=== PATIENT | female | born 1940 | race Two or more races ===

== ENCOUNTER 2017-10-31 15:40 | Inpatient (IN) | payer MEDICARE, OTHER ==
[~2017-10-31] VITALS: Ht 160 cm; Wt 99.8 kg
[2017-10-31] MEDS ORDERED: METOPROLOL TART25 MG ORAL (15:58)
[2017-10-31 16:00] VITALS: BP 127/69
--- NOTE | 2017-10-31 16:45 | Emergency Room Report ---
History of Present Illness General Chief Complaint: Upper Respiratory Illness Source: Patient, EMS Present Illness HPI 77-year-old female presents to ED complaining of shortness of breath last few days. No decreased leg swelling. Denies fevers or chills. Denies cough. Denies chest pain. Denies sick contacts or recent travel. [employer] is Dr Jey Joyce. No other aggravating or relieving factors. Denies any other associated symptoms Allergies: Coded Allergies: No Known Allergies (Unverified , 10/31/17) Patient History Past Medical History: HTN, AFib Past Surgical History: none Pertinent Family History: none Social History: Denies: smoking, alcohol use, drug use Now: No Immunizations: UTD Reviewed Nursing Documentation: PMH: Agreed, PSxH: Agreed Nursing Documentation-PMH Past Medical History: No History, Except For Hx Cardiac Problems: Yes Hx Hypertension: Yes Review of Systems All Other Systems: negative except mentioned in HPI Physical Exam Vital Signs Date Time Temp Pulse Resp B/P (MAP) Pulse Ox O2 Delivery O2 Flow Rate FiO2 10/31/17 15:36 120 20 132/94 99 Nasal Cannula 4.0 Sp02 EP Interpretation: reviewed, normal General Appearance: alert, mild distress, obese Head: normocephalic ENT: normal ENT inspection Neck: normal inspection Respiratory: decreased breath sounds Cardiovascular #1: regular rate, rhythm, no edema Gastrointestinal: normal bowel sounds, non tender, soft, non-distended, no guarding, no rebound Rectal: deferred Genitourinary: no CVA tenderness Musculoskeletal: back normal, swelling - 2+ pitting edema bilateral LEs Neurologic: alert, oriented x3, responsive, motor strength/tone normal, sensory intact, speech normal Psychiatric: normal inspection Skin: normal inspection Lymphatic: normal inspection Medical Decision Making Diagnostic Impression: Primary Impression: Acute exacerbation of CHF (congestive heart failure) Qualified Codes: I50.9 - Heart failure, unspecified ER Course Hospital Course 77-year-old female presents ED complaining of shortness of breath, leg swelling Differential diagnoses include: DC/unstable angina, contusion, muscle strain, PTX, rib fracture Clinical course Patient placed on stretcher. on quality assurance monitor final. After initial history and physical I ordered labs, EKG, chest x-ray labs reviewed- no leukocytosis, hemoglobin/hematocrit stable, creatinine elevated, troponins negative, BNP elevated. influenza negative EKG -afib, normal rate, no acute ischemic changes Chest x-ray- cardiomegaly, CHF ?PNA Antibiotics given. Lasix given. Spoke to PMD Dr Jey Joyce. asked that we admit to Dr Amado Case discussed with Dr. Amado and he agreed to accept the patient to his service for further care and support I. I feel this is a highly complex case requiring extensive working including EKG/Rhythm strip, Xray/CT/US, Blood/urine lab work, repeat exams while in ED, and administration of strong opiates/narcotics for pain control, admission to hospital or close patient follow up. Diagnosis - CHF exacerbation admitted to telemetry in serious condition Labs Test 10/31/17 16:30 10/31/17 18:23 White Blood Count 7.6 K/UL (4.8-10.8) Red Blood Count 4.57 M/UL (4.20-5.40) Hemoglobin 13.0 G/DL (12.0-16.0) Hematocrit 42.9 % (37.0-47.0) Mean Corpuscular Volume 94 FL (80-99) Mean Corpuscular Hemoglobin 28.4 PG (27.0-31.0) Mean Corpuscular Hemoglobin Concent 30.2 G/DL (32.0-36.0) Red Cell Distribution Width 12.7 % (11.6-14.8) Platelet Count 166 K/UL (150-450) Mean Platelet Volume 8.2 FL (6.5-10.1) Neutrophils (%) (Auto) 82.5 % (45.0-75.0) Lymphocytes (%) (Auto) 12.4 % (20.0-45.0) Monocytes (%) (Auto) 4.0 % (1.0-10.0) Eosinophils (%) (Auto) 0.6 % (0.0-3.0) Basophils (%) (Auto) 0.5 % (0.0-2.0) Sodium Level 143 MMOL/L (136-145) Potassium Level 4.0 MMOL/L (3.5-5.1) Chloride Level 103 MMOL/L (98-107) Carbon Dioxide Level 35 MMOL/L (21-32) Anion Gap 5 mmol/L (5-15) Blood Urea Nitrogen 18 mg/dL (7-18) Creatinine 0.9 MG/DL (0.55-1.30) Estimat Glomerular Filtration Rate mL/min (>60) Glucose Level 158 MG/DL (74-106) Lactic Acid Level 1.50 mmol/L (0.66-2.22) Calcium Level 8.8 MG/DL (8.5-10.1) Total Bilirubin 0.6 MG/DL (0.2-1.0) Aspartate Amino Transf (AST/SGOT) 27 U/L (15-37) Alanine Aminotransferase (ALT/SGPT) 27 U/L (12-78) Alkaline Phosphatase 76 U/L (46-116) Total Creatine Kinase 45 U/L (26-308) Creatine Kinase MB 1.5 NG/ML (0.0-3.6) Creatine Kinase MB Relative Index 3.3 Troponin I 0.002 ng/mL (0.000-0.056) Pro-B-Type Natriuretic Peptide 1889 pg/mL (0-125) Total Protein 7.0 G/DL (6.4-8.2) Albumin 3.2 G/DL (3.4-5.0) Globulin 3.8 g/dL Albumin/Globulin Ratio 0.8 (1.0-2.7) Urine Color Pale yellow Urine Appearance Clear Urine pH 5 (4.5-8.0) Urine Specific [place] 1.015 (1.005-1.035) Urine Protein 2+ (NEGATIVE) Urine Glucose (UA) Negative (NEGATIVE) Urine Ketones Negative (NEGATIVE) Urine Occult Blood 2+ (NEGATIVE) Urine Nitrite Negative (NEGATIVE) Urine Bilirubin Negative (NEGATIVE) Urine Urobilinogen Normal MG/DL (0.0-1.0) Urine Leukocyte Esterase Negative (NEGATIVE) EKG Diagnostic Results Rate: normal Rhythm: other - afib ST Segments: no acute changes Rhythm Strip Diag. Results EP Interpretation: yes Rhythm: no PVC's, no ectopy Chest X-Ray Diagnostic Results Chest X-Ray Diagnostic Results : Chest X-Ray Ordered: Yes # of Views/Limited/Complete: 1 View Indication: Shortness of Breath EP Interpretation: Yes Interpretation: no pneumothorax, other - cardiomegaly. CHF ?PNA Impression: Other - chf vs pna Electronically Signed by: Electronically signed by Per Akins MD Last Vital Signs Date Time Temp Pulse Resp B/P (MAP) Pulse Ox O2 Delivery O2 Flow Rate FiO2 10/31/17 15:36 120 20 132/94 99 Nasal Cannula 4.0 Status: improved Disposition: ADMITTED INPATIENT Condition: Serious Referrals: NON PHYSICIAN (PCP) PER AKINS M.D. Oct 31, 2017 16:45
--- NOTE | 2017-10-31 16:46 | Diagnostic Imaging Report ---
Indication: Dyspnea Technique: XRAY Chest 1v Comparison: None Findings: Heart is enlarged. There is mild pulmonary vascular congestion. There is a small right pleural effusion and right basilar airspace opacities. No pneumothorax. No acute osseous abnormality. Impression: Small right pleural effusion with adjacent right basilar opacities. Findings concerning for pneumonia. Component of underlying CHF possible given cardiomegaly. Clinical correlation and follow-up exam recommended.
[2017-10-31 16:57] LABS: BASOPHILS % (AUTO) 0.5 % (0.0-2.0); EOSINOPHILS % (AUTO) 0.6 % (0.0-3.0); HEMATOCRIT 42.9 % (37.0-47.0); LYMPHOCYTES % (AUTO) 12.4 % (20.0-45.0); MEAN CORPUSCULAR VOLUME 94 FL (80-99); NEUTROPHILS % (AUTO) 82.5 % (45.0-75.0); PLATELET COUNT 166 K/UL (150-450); RED BLOOD COUNT 4.57 M/UL (4.20-5.40); RED CELL DISTRIBUTION WIDTH 12.7 % (11.6-14.8); WHITE BLOOD COUNT 7.6 K/UL (4.8-10.8)
[2017-10-31 17:01] LABS: ANION GAP 5 mmol/L (5-15); BLOOD UREA NITROGEN 18 mg/dL (7-18); CALCIUM 8.8 MG/DL (8.5-10.1); CARBON DIOXIDE 35 MMOL/L (21-32); CHLORIDE 103 MMOL/L (98-107); CREATININE 0.9 MG/DL (0.55-1.30); SODIUM 143 MMOL/L (136-145)
[2017-10-31 17:14] LABS: ALANINE AMINOTRANSFERASE 27 U/L (12-78); ALBUMIN 3.2 G/DL (3.4-5.0); ALBUMIN/GLOBULIN RATIO 0.8 (1.0-2.7); ALKALINE PHOSPHATASE 76 U/L (46-116); ASPARTATE AMINO TRANSFERASE 27 U/L (15-37); BILIRUBIN,TOTAL 0.6 MG/DL (0.2-1.0); CKMB 1.5 NG/ML (0.0-3.6); CREATINE KINASE 45 U/L (26-308)
[2017-10-31] MEDS ORDERED: BYSTOLIC 10MG10 MG (17:39)
[2017-10-31] MEDS ORDERED: XARELTO20 MG ORAL (17:39)
[2017-10-31] MEDS ORDERED: OLOPATADINE HC2.5 ML (17:39)
[2017-10-31] MEDS ORDERED: Tubing IV Cassette IV ONE (17:46)
[2017-10-31] MEDS ORDERED: XARELTO15 MG ORAL (17:47)
[2017-10-31] MEDS ORDERED: METOPROLOL SUCC25 MG ORAL (17:47)
[2017-10-31 18:00] VITALS: BP 123/71
[2017-10-31 18:38] LABS: APPEARANCE,URINE CLEAR; BILIRUBIN, URINE NEGATIVE (NEGATIVE); COLOR,URINE PALE YELLOW; GLUCOSE, URINE (UA) NEGATIVE (NEGATIVE); KETONES,URINE NEGATIVE (NEGATIVE); LEUKOCYTE ESTERASE ,URINE NEGATIVE (NEGATIVE); NITRITE,URINE NEGATIVE (NEGATIVE); PH,URINE 5 (4.5-8.0); PROTEIN,URINE 2+ (NEGATIVE); UROBILINOGEN,URINE NORMAL MG/DL (0.0-1.0)
[2017-10-31] MEDS ORDERED: Zolpidem 5mg tab ORAL PRN (20:45)
[2017-10-31 20:47] VITALS: BP 139/65
[2017-10-31] MEDS ORDERED: Heparin 5000 units/ml inj SUBQ SCH (21:00)
--- NOTE | 2017-10-31 21:20 | History & Physical ---
History and Physical History & Physicial 77 year old female presents with acute shortness of breath with no significant congestion. Patient does have history of CHF and noted to have possible pneumonia and pulmonary edema. Patient without fevers, chills, chest pain, or palpitations. Patient care reviewed and usually is admited to an outside hospital. Patient findings discussed and reviewed with the ER MD. no other associated symptoms. Past Medical History: HTN, AFib, CHF Past Surgical History: none Pertinent Family History: none Social History: Denies: smoking, alcohol use, drug use, retired, [employer] Reviewed of systems: reviewed Physical WDWN NAD reduced breath sounds bilaterally with some basilar crackles [id number] without MRG NABS nontender no HSM no CC some edema nonfocal Laboratory Tests Test 10/31/17 16:30 10/31/17 18:23 White Blood Count 7.6 K/UL (4.8-10.8) Red Blood Count 4.57 M/UL (4.20-5.40) Hemoglobin 13.0 G/DL (12.0-16.0) Hematocrit 42.9 % (37.0-47.0) Mean Corpuscular Volume 94 FL (80-99) Mean Corpuscular Hemoglobin 28.4 PG (27.0-31.0) Mean Corpuscular Hemoglobin Concent 30.2 G/DL (32.0-36.0) L Red Cell Distribution Width 12.7 % (11.6-14.8) Platelet Count 166 K/UL (150-450) Mean Platelet Volume 8.2 FL (6.5-10.1) Neutrophils (%) (Auto) 82.5 % (45.0-75.0) H Lymphocytes (%) (Auto) 12.4 % (20.0-45.0) L Monocytes (%) (Auto) 4.0 % (1.0-10.0) Eosinophils (%) (Auto) 0.6 % (0.0-3.0) Basophils (%) (Auto) 0.5 % (0.0-2.0) Sodium Level 143 MMOL/L (136-145) Potassium Level 4.0 MMOL/L (3.5-5.1) Chloride Level 103 MMOL/L (98-107) Carbon Dioxide Level 35 MMOL/L (21-32) H Anion Gap 5 mmol/L (5-15) Blood Urea Nitrogen 18 mg/dL (7-18) Creatinine 0.9 MG/DL (0.55-1.30) Estimat Glomerular Filtration Rate mL/min (>60) Glucose Level 158 MG/DL (74-106) H Lactic Acid Level 1.50 mmol/L (0.66-2.22) Calcium Level 8.8 MG/DL (8.5-10.1) Total Bilirubin 0.6 MG/DL (0.2-1.0) Aspartate Amino Transf (AST/SGOT) 27 U/L (15-37) Alanine Aminotransferase (ALT/SGPT) 27 U/L (12-78) Alkaline Phosphatase 76 U/L (46-116) Total Creatine Kinase 45 U/L (26-308) Creatine Kinase MB 1.5 NG/ML (0.0-3.6) Creatine Kinase MB Relative Index 3.3 Troponin I 0.002 ng/mL (0.000-0.056) Pro-B-Type Natriuretic Peptide 1889 pg/mL (0-125) H Total Protein 7.0 G/DL (6.4-8.2) Albumin 3.2 G/DL (3.4-5.0) L Globulin 3.8 g/dL Albumin/Globulin Ratio 0.8 (1.0-2.7) L Urine Color Pale yellow Urine Appearance Clear Urine pH 5 (4.5-8.0) Urine Specific [place] 1.015 (1.005-1.035) Urine Protein 2+ (NEGATIVE) H Urine Glucose (UA) Negative (NEGATIVE) Urine Ketones Negative (NEGATIVE) Urine Occult Blood 2+ (NEGATIVE) H Urine Nitrite Negative (NEGATIVE) Urine Bilirubin Negative (NEGATIVE) Urine Urobilinogen Normal MG/DL (0.0-1.0) Urine Leukocyte Esterase Negative (NEGATIVE) Urine RBC 2-4 /HPF (0 - 2) H Urine WBC 0-2 /HPF (0 - 2) Urine Squamous Epithelial Cells Few /LPF (NONE/OCC) Urine Transitional Epithelial Cells /LPF (NONE) Urine Bacteria Few /HPF (NONE) IMPRESSION CHF possible Pneumonia PAF respiratory insufficiency PLAN diurese antibiotics oxygen lasix home meds follow up labs and ECG impression, plan, and exam edited and reviewed in detail care discussed with GLEN RAINEY Oct 31, 2017 21:19
[2017-10-31] MEDS: cefTRIAXone 1gm/D5W 55ml IVPB SCH ×2 (23:30)
[2017-11-01 00:23] VITALS: BP 142/89
[2017-11-01 04:29] VITALS: BP 132/91
--- NOTE | 2017-11-01 07:00 | Pulmonology Progress Note ---
Assessment/Plan Assessment/Plan IMPRESSION CHF possible Pneumonia PAF respiratory insufficiency atrial fibrillation, with RVR PLAN diurese antibiotics oxygen rate control monitor for change cards evaluation lasix home meds follow up labs and ECG impression, plan, and exam edited and reviewed in detail care discussed with RN Subjective Allergies: Coded Allergies: No Known Allergies (Unverified , 10/31/17) Subjective care noted oxygen needs noted no distress Objective Last 24 Hour Vital Signs Date Time Temp Pulse Resp B/P (MAP) Pulse Ox O2 Delivery O2 Flow Rate FiO2 11/01/17 04:29 96.8 94 19 132/91 97 Nasal Cannula 2.0 11/01/17 04:00 98 11/01/17 00:23 97.2 115 19 142/89 97 Nasal Cannula 11/01/17 00:00 119 10/31/17 20:47 97.7 103 20 139/65 96 Nasal Cannula 10/31/17 20:00 96 10/31/17 19:13 97.7 107 20 123/71 95 Nasal Cannula 2.0 10/31/17 18:00 97.7 107 20 123/71 95 Nasal Cannula 2.0 10/31/17 16:00 102 16 127/69 98 Nasal Cannula 2.0 10/31/17 15:45 120 20 Nasal Cannula 4.0 10/31/17 15:36 120 20 132/94 99 Nasal Cannula 4.0 Intake and Output 10/31/17 11/01/17 19:00 07:00 Output Total 550 ml 600 ml Balance -550 ml -600 ml Output Urine Total 550 ml 600 ml Objective WDWN NAD reduced breath sounds bilaterally with some crackles and rhonchi S1S2 iRRR without MRG NABS nontender no HSM no CC noted edema nonfocal Microbiology Date/Time Source Procedure Growth Status 10/31/17 16:30 Nasal Nares Influenza Types A,B Antigen (MILAD) - Final Complete Laboratory Tests 10/31/17 16:30: White Blood Count 7.6, Red Blood Count 4.57, Hemoglobin 13.0, Hematocrit 42.9, Mean Corpuscular Volume 94, Mean Corpuscular Hemoglobin 28.4, Mean Corpuscular Hemoglobin Concent 30.2L, Red Cell Distribution Width 12.7, Platelet Count 166, Mean Platelet Volume 8.2, Neutrophils (%) (Auto) 82.5H, Lymphocytes (%) (Auto) 12.4L, Monocytes (%) (Auto) 4.0, Eosinophils (%) (Auto) 0.6, Basophils (%) (Auto ) 0.5, Sodium Level 143, Potassium Level 4.0, Chloride Level 103, Carbon Dioxide Level 35H, Anion Gap 5, Blood Urea Nitrogen 18, Creatinine 0.9, Estimat Glomerular Filtration Rate , Glucose Level 158H, Lactic Acid Level 1.50, Calcium Level 8.8, Total Bilirubin 0.6, Aspartate Amino Transf (AST/SGOT) 27, Alanine Aminotransferase (ALT/SGPT) 27, Alkaline Phosphatase 76, Total Creatine Kinase 45, Creatine Kinase MB 1.5, Creatine Kinase MB Relative Index 3.3, Troponin I 0.002, Pro-B-Type Natriuretic Peptide 1889H, Total Protein 7.0, Albumin 3.2L, Globulin 3.8, Albumin/Globulin Ratio 0.8L 10/31/17 18:23: Urine Color Pale yellow, Urine Appearance Clear, Urine pH 5, Urine Specific [place] 1.015, Urine Protein 2+H, Urine Glucose (UA) Negative, Urine Ketones Negative, Urine Occult Blood 2+H, Urine Nitrite Negative, Urine Bilirubin Negative, Urine Urobilinogen Normal, Urine Leukocyte Esterase Negative, Urine RBC 2-4H, Urine WBC 0-2, Urine Squamous Epithelial Cells Few, Urine Transitional Epithelial Cells , Urine Bacteria Few Current Medications Medications (Trade) Dose Ordered Sig/Butch Route PRN Reason Start Time Stop Time Status Last Admin Dose Admin Acetaminophen (Tylenol) 650 mg Q4H PRN ORAL Mild Pain/Temp > 100.5 10/31/17 20:45 11/30/17 20:44 Al Hydroxide/Mg Hydroxide (Mylanta) 30 ml Q4HR PRN ORAL acid reduction 10/31/17 20:45 11/30/17 20:44 Aspirin (ASA) 81 mg DAILY ORAL 11/01/17 09:00 12/01/17 08:59 Ceftriaxone Sodium 1 gm/ Dextrose 55 ml @ 110 mls/hr Q24H IVPB 10/31/17 23:30 11/07/17 23:29 10/31/17 23:30 Furosemide (Lasix) 40 mg DAILY IV 11/01/17 09:00 12/01/17 08:59 Metoprolol Succinate (Toprol XL) 25 mg BID ORAL 11/01/17 09:00 12/01/17 08:59 UNV Nebivolol (Bystolic) 10 mg DAILY ORAL 11/01/17 09:00 12/01/17 08:59 UNV Non-Formulary Medication (Non-Formulary Med) 2.5 ea BID ORAL 11/01/17 09:00 12/01/17 08:59 UNV Pantoprazole (Protonix) 40 mg DAILY ORAL 11/01/17 09:00 12/01/17 08:59 Rivaroxaban (Xarelto) 15 mg QPM ORAL 11/01/17 16:30 12/01/17 16:29 Zolpidem Tartrate (Ambien) 10 mg HSPRN PRN ORAL Insomnia 10/31/17 20:45 11/07/17 20:44 GLEN DELGADO Nov 01, 2017 07:00
[2017-11-01 08:04] VITALS: BP 127/87
[2017-11-01] MEDS ORDERED: Aspirin Baby 81mg ORAL SCH (09:00)
[2017-11-01] MEDS ORDERED: Metoprolol Succinate XL 25mg tab ORAL SCH ×2 (09:00→21:00)
[2017-11-01 09:59] LABS: BASOPHILS % (AUTO) 0.4 % (0.0-2.0); EOSINOPHILS % (AUTO) 0.6 % (0.0-3.0); HEMATOCRIT 42.4 % (37.0-47.0); HEMOGLOBIN 13.1 G/DL (12.0-16.0); LYMPHOCYTES % (AUTO) 18.3 % (20.0-45.0); MEAN CORPUSCULAR VOLUME 93 FL (80-99); NEUTROPHILS % (AUTO) 74.7 % (45.0-75.0); PLATELET COUNT 176 K/UL (150-450); RED BLOOD COUNT 4.56 M/UL (4.20-5.40); RED CELL DISTRIBUTION WIDTH 12.7 % (11.6-14.8); WHITE BLOOD COUNT 7.5 K/UL (4.8-10.8)
[2017-11-01 10:24] LABS: ANION GAP 5 mmol/L (5-15); BLOOD UREA NITROGEN 13 mg/dL (7-18); CALCIUM 9.2 MG/DL (8.5-10.1); CARBON DIOXIDE 38 MMOL/L (21-32); CHLORIDE 101 MMOL/L (98-107); POTASSIUM 3.6 MMOL/L (3.5-5.1); SODIUM 144 MMOL/L (136-145)
[2017-11-01] MEDS ORDERED: dilTIAZem HCl 25mg/5ml Inj IVP ONE (11:35)
[2017-11-01 11:55] VITALS: BP 135/73
--- NOTE | 2017-11-01 12:30 | General Progress Note ---
Assessment/Plan Problem List: (1) PNA (pneumonia) ICD Codes: J18.9 - Pneumonia, unspecified organism SNOMED: 525119146 (2) Atrial fibrillation with RVR ICD Codes: I48.91 - Unspecified atrial fibrillation SNOMED: 958657153775605 (3) Acute exacerbation of CHF (congestive heart failure) ICD Codes: I50.9 - Heart failure, unspecified SNOMED: 73251127 Qualifiers: Qualified Codes: I50.9 - Heart failure, unspecified Status: stable, progressing Assessment/Plan resp care o2 cardiac rx/diuresis abx check tfts Subjective ROS Limited/Unobtainable: No Constitutional: Reports: malaise, weakness HEENT: Reports: no symptoms Cardiovascular: Reports: no symptoms Respiratory: Reports: cough, shortness of breath Gastrointestinal/Abdominal: Reports: no symptoms Genitourinary: Reports: no symptoms Neurologic/Psychiatric: Reports: no symptoms Endocrine: Reports: no symptoms Hematologic/Lymphatic: Reports: no symptoms Allergies: Coded Allergies: No Known Allergies (Unverified , 10/31/17) All Systems: reviewed and negative except above Subjective no events. less sob. had rapid afib earlier today. now better controlled. no cp Objective Last 24 Hour Vital Signs Date Time Temp Pulse Resp B/P (MAP) Pulse Ox O2 Delivery O2 Flow Rate FiO2 11/01/17 11:55 97.2 103 18 135/73 98 Nasal Cannula 2.0 11/01/17 11:32 129 141/96 11/01/17 08:04 96.6 103 18 127/87 92 Nasal Cannula 2.0 11/01/17 08:00 99 11/01/17 04:29 96.8 94 19 132/91 97 Nasal Cannula 2.0 11/01/17 04:00 98 11/01/17 00:23 97.2 115 19 142/89 97 Nasal Cannula 11/01/17 00:00 119 10/31/17 20:47 97.7 103 20 139/65 96 Nasal Cannula 10/31/17 20:00 96 10/31/17 19:13 97.7 107 20 123/71 95 Nasal Cannula 2.0 10/31/17 18:00 97.7 107 20 123/71 95 Nasal Cannula 2.0 10/31/17 16:00 102 16 127/69 98 Nasal Cannula 2.0 10/31/17 15:45 120 20 Nasal Cannula 4.0 10/31/17 15:36 120 20 132/94 99 Nasal Cannula 4.0 Intake and Output 10/31/17 11/01/17 19:00 07:00 Output Total 550 ml 600 ml Balance -550 ml -600 ml Output Urine Total 550 ml 600 ml Laboratory Tests 10/31/17 16:30: White Blood Count 7.6, Red Blood Count 4.57, Hemoglobin 13.0, Hematocrit 42.9, Mean Corpuscular Volume 94, Mean Corpuscular Hemoglobin 28.4, Mean Corpuscular Hemoglobin Concent 30.2L, Red Cell Distribution Width 12.7, Platelet Count 166, Mean Platelet Volume 8.2, Neutrophils (%) (Auto) 82.5H, Lymphocytes (%) (Auto) 12.4L, Monocytes (%) (Auto) 4.0, Eosinophils (%) (Auto) 0.6, Basophils (%) (Auto ) 0.5, Sodium Level 143, Potassium Level 4.0, Chloride Level 103, Carbon Dioxide Level 35H, Anion Gap 5, Blood Urea Nitrogen 18, Creatinine 0.9, Estimat Glomerular Filtration Rate , Glucose Level 158H, Lactic Acid Level 1.50, Calcium Level 8.8, Total Bilirubin 0.6, Aspartate Amino Transf (AST/SGOT) 27, Alanine Aminotransferase (ALT/SGPT) 27, Alkaline Phosphatase 76, Total Creatine Kinase 45, Creatine Kinase MB 1.5, Creatine Kinase MB Relative Index 3.3, Troponin I 0.002, Pro-B-Type Natriuretic Peptide 1889H, Total Protein 7.0, Albumin 3.2L, Globulin 3.8, Albumin/Globulin Ratio 0.8L 10/31/17 18:23: Urine Color Pale yellow, Urine Appearance Clear, Urine pH 5, Urine Specific [place] 1.015, Urine Protein 2+H, Urine Glucose (UA) Negative, Urine Ketones Negative, Urine Occult Blood 2+H, Urine Nitrite Negative, Urine Bilirubin Negative, Urine Urobilinogen Normal, Urine Leukocyte Esterase Negative, Urine RBC 2-4H, Urine WBC 0-2, Urine Squamous Epithelial Cells Few, Urine Transitional Epithelial Cells , Urine Bacteria Few 11/01/17 09:30: White Blood Count 7.5, Red Blood Count 4.56, Hemoglobin 13.1, Hematocrit 42.4, Mean Corpuscular Volume 93, Mean Corpuscular Hemoglobin 28.8, Mean Corpuscular Hemoglobin Concent 31.0L, Red Cell Distribution Width 12.7, Platelet Count 176, Mean Platelet Volume 9.3, Neutrophils (%) (Auto) 74.7, Lymphocytes (%) (Auto) 18.3L, Monocytes (%) (Auto) 6.0, Eosinophils (%) (Auto) 0.6, Basophils (%) (Auto ) 0.4, Sodium Level 144, Potassium Level 3.6, Chloride Level 101, Carbon Dioxide Level 38H, Anion Gap 5, Blood Urea Nitrogen 13, Creatinine 1.0, Estimat Glomerular Filtration Rate , Glucose Level 191H, Calcium Level 9.2, Pro-B-Type Natriuretic Peptide 1936H Height (Feet): 5 Height (Inches): 3.00 Weight (Pounds): 176 General Appearance: WD/WN, alert EENT: PERRL/EOMI Neck: supple Cardiovascular: irregularly irregular Respiratory/Chest: chest wall non-tender, rhonchi - bilaterally Abdomen: normal bowel sounds, non tender, soft, no organomegaly Extremities: normal range of motion Edema: mild edema 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
--- NOTE | 2017-11-01 12:33 | Diagnostic Imaging Report ---
Indication: Dyspnea Comparison: 10/31/2017 2 views of the chest obtained. The studies are technically dissimilar. The interstitium and pulmonary vascularity remain prominent. There is evidence of mild right basal atelectasis and possibly a small effusion. Heart size is within normal limits accounting for difference in projection angle and technique. Bones are osteopenic. Moderate degenerative disease of the thoracic spine noted. IMPRESSION: Prominent pulmonary vascularity. Mild degree of interstitial edema may be present. Please correlate clinically.
[2017-11-01 15:31] VITALS: BP 133/80
[2017-11-01] MEDS: Xarelto 15mg tab ORAL SCH (16:07)
--- NOTE | 2017-11-01 17:42 | Cardiology Report ---
APPROVED REPORT EXAM: Two-dimensional and M-mode echocardiogram with Doppler and color Doppler. INDICATION Congestive Heart Failure M-Mode DIMENSIONS IVSd0.6 (0.7-1.1cm)Left Atrium (MM)5.0 (1.6-4.0cm) LVDd4.2 (3.5-5.6cm)Aortic Root3.0 (2.0-3.7cm) PWd0.9 (0.7-1.1cm)Aortic Cusp Exc.1.5 (1.5-2.0cm) LVDs2.6 (2.5-4.0cm) PWs0.9 cm Normal left ventricular chamber size, systolic function and wall motion. Left ventricular ejection fraction estimated to be 60-65%. No evidence of left ventricular hypertrophy. Small posterior pericardial effusion. Mild bi-atrial enlargement by 2D. Focal aortic valve sclerosis with adequate cusp excursion. Thickened mitral valve leaflets with normal excursion. Mild mitral annulus and aortic root calcification. Pulmonic valve not well visualized. Normal tricuspid valve structure. IVC is normal in size and collapsible with respiration. A color flow and spectral Doppler study was performed and revealed: No aortic regurgitation. Trace mitral regurgitation. Mitral inflow velocities non diagnostic Mild tricuspid regurgitation. Tricuspid systolic velocities suggests peak right ventricular systolic pressure of 53 mmHg. Consistent with moderate pulmonary hypertension.
--- NOTE | 2017-11-01 17:46 | Cardiology Report ---
APPROVED REPORT EKG Measurement Heart [id number] Atrial fibrillation with rapid ventricular response Low voltage QRS Cannot rule out Anteroseptal infarct, age undetermined Abnormal ECG
[2017-11-01] MEDS ORDERED: Metoprolol 5mg/5ml Inj IVPB ONE (18:30)
[2017-11-01 20:28] VITALS: BP 126/95
[2017-11-01] MEDS: Metoprolol Tartrate 50mg tab ORAL SCH (20:41)
[2017-11-01] MEDS: cefTRIAXone 1gm/D5W 55ml IVPB SCH ×2 (23:35)
--- NOTE | 2017-11-02 | Consultation ---
DATE OF CONSULTATION: 10/31/2017 CARDIOLOGY CONSULTATION CONSULTING PHYSICIAN: Nilay Watters M.D. REQUESTING PHYSICIANS: 1. Tim Amado M.D. 2. Sloan Hartmann M.D. REASON FOR CONSULTATION: Congestive heart failure and atrial fibrillation. HISTORY OF PRESENT ILLNESS: This is a 77-year-old [facility] female with a history of hypertension, who has had several days of progressive shortness of breath and several weeks of progressive leg swelling. She does have a prior history of congestive heart failure. She is unaware of any prior history of irregular heartbeats. She has had some cough and congestion as well. No fevers or chills. PAST MEDICAL HISTORY: 1. Hypertension. 2. Paroxysmal atrial fibrillation. 3. Congestive heart failure. 4. Osteoarthritis. MEDICATIONS: Reviewed and reconciled. ALLERGIES: None known. SOCIAL HISTORY: Negative for smoking, alcohol, or substance abuse. FAMILY HISTORY: Noncontributory. REVIEW OF SYSTEMS: No fevers. She has had a dry cough. No history of blood clots. No history of seizure or stroke. No history of diabetes or thyroid disorder. No history of myocardial infarction. PHYSICAL EXAMINATION: GENERAL: Mildly obese female in moderate respiratory distress. VITAL SIGNS: Blood pressure 132/94, pulse 120, respirations 20, and afebrile. LUNGS: Coarse breath sounds. Scattered rhonchi. HEART: Irregularly irregular rhythm. Normal S1, S2. ABDOMEN: Soft. EXTREMITIES: With 2+ dependent edema. DIAGNOSTIC DATA: EKG, atrial fibrillation with rapid ventricular response and incomplete left bundle-branch block. Chest x-ray, pulmonary venous congestion and cardiomegaly. White count 7.6 and hemoglobin 13. Lactic acid normal. Pro-natriuretic peptide 1889. Troponin 0.002. BUN 18, creatinine 0.9, and potassium 4. IMPRESSION: 1. Acute on chronic diastolic congestive heart failure. 2. Paroxysmal atrial fibrillation with rapid ventricular response. 3. Hypertensive heart disease. 4. Possible pneumonia. PLAN: 1. Diuresis. 2. Venous duplex. 3. Full anticoagulation. 4. Beta-blockade for rate control. 5. Echocardiogram. 6. We will review outpatient hospital records to expand database. 7. Further recommendations will follow. Nilay Watters M.D. DR: VINOD JOB#: [id number] CC:
[2017-11-02 00:34] VITALS: BP 129/88
--- NOTE | 2017-11-02 03:45 | Progress Note ---
DATE: 11/01/2017 CARDIOLOGY PROGRESS NOTE SUBJECTIVE: The patient has continued to have shortness of breath. She notes urinating frequently following diuretic therapy. She continues to have rapid atrial fibrillation. PHYSICAL EXAMINATION: VITAL SIGNS: Blood pressure 126/95, pulse 114, and respirations 19. Afebrile. NECK: Supple. Jugular venous pressure difficult to assess due to obesity. LUNGS: With bilateral rales. CARDIAC: Irregularly irregular. Normal S1 and paradoxically split S2. A 1/6 systolic apical murmur. ABDOMEN: Soft. EXTREMITIES: A 1+ to 2+ dependent lower extremity edema. DIAGNOSTIC DATA: Echocardiogram revealed normal ejection fraction with diastolic dysfunction and pulmonary hypertension revealing PA systolic pressure at 53 mmHg. LABORATORY DATA: White count 7.5 and hemoglobin 13.1. Potassium 3.6, BUN 13, and creatinine 1. TSH 0.287. Pro-natriuretic peptide 1900. IMPRESSION: 1. Acute on chronic diastolic congestive heart failure. 2. Pulmonary hypertension. 3. Atrial fibrillation with rapid ventricular response. 4. Possible pneumonia. 5. Acute respiratory insufficiency. PLAN: 1. Diuresis. 2. Rate control. 3. Venous duplex scan. 4. Full anticoagulation with apixaban or rivaroxaban. 5. Titrate anti-failure and antihypertensive regimen. 6. Check oxygen saturation on room air. Nilay Watters M.D. DR: MARICHUY JOB#: [id number] CC:
[2017-11-02 04:29] VITALS: BP 130/64
[2017-11-02 08:00] VITALS: BP 145/86
[2017-11-02] MEDS ORDERED: Vancomycin 1.5 GM/D5W 250ML IVPB ONE (08:00)
[2017-11-02] MEDS: Metoprolol Tartrate 50mg tab ORAL SCH ×2 (08:19→21:38)
--- NOTE | 2017-11-02 08:29 | General Progress Note ---
Assessment/Plan Problem List: (1) PNA (pneumonia) ICD Codes: J18.9 - Pneumonia, unspecified organism SNOMED: 662780065 (2) Atrial fibrillation with RVR ICD Codes: I48.91 - Unspecified atrial fibrillation SNOMED: 316015909305968 (3) Acute exacerbation of CHF (congestive heart failure) ICD Codes: I50.9 - Heart failure, unspecified SNOMED: 46553046 Qualifiers: Qualified Codes: I50.9 - Heart failure, unspecified Status: stable, progressing Assessment/Plan resp care o2 cardiac rx/diuresis monitor lytes abx follow up +blood culture- ?contaminant Subjective ROS Limited/Unobtainable: No Constitutional: Reports: malaise, weakness HEENT: Reports: no symptoms Cardiovascular: Reports: no symptoms Respiratory: Reports: cough, shortness of breath Gastrointestinal/Abdominal: Reports: no symptoms Genitourinary: Reports: no symptoms Neurologic/Psychiatric: Reports: no symptoms Endocrine: Reports: no symptoms Hematologic/Lymphatic: Reports: no symptoms Allergies: Coded Allergies: No Known Allergies (Unverified , 10/31/17) All Systems: reviewed and negative except above Subjective no events. less sob. cxr noted- still with chf. + blood culture Objective Last 24 Hour Vital Signs Date Time Temp Pulse Resp B/P (MAP) Pulse Ox O2 Delivery O2 Flow Rate FiO2 11/02/17 04:29 96.5 98 19 130/64 95 Nasal Cannula 11/02/17 04:00 88 11/02/17 00:34 97.3 100 19 129/88 96 Nasal Cannula 11/02/17 00:00 87 11/01/17 20:41 114 126/95 11/01/17 20:28 98.4 114 19 126/95 92 Nasal Cannula 11/01/17 20:00 87 11/01/17 18:38 103 133/80 11/01/17 16:00 87 11/01/17 15:31 96.4 85 18 133/80 100 Nasal Cannula 2.0 11/01/17 12:00 110 11/01/17 11:55 97.2 103 18 135/73 98 Nasal Cannula 2.0 11/01/17 11:32 129 141/96 Intake and Output 11/01/17 11/02/17 19:00 07:00 Intake Total 820 ml 175 ml Output Total 600 ml Balance 820 ml -425 ml Intake Oral 820 ml 120 ml IV Total 55 ml Output Urine Total 600 ml # Voids 4 Laboratory Tests 11/01/17 09:30: White Blood Count 7.5, Red Blood Count 4.56, Hemoglobin 13.1, Hematocrit 42.4, Mean Corpuscular Volume 93, Mean Corpuscular Hemoglobin 28.8, Mean Corpuscular Hemoglobin Concent 31.0L, Red Cell Distribution Width 12.7, Platelet Count 176, Mean Platelet Volume 9.3, Neutrophils (%) (Auto) 74.7, Lymphocytes (%) (Auto) 18.3L, Monocytes (%) (Auto) 6.0, Eosinophils (%) (Auto) 0.6, Basophils (%) (Auto ) 0.4, Sodium Level 144, Potassium Level 3.6, Chloride Level 101, Carbon Dioxide Level 38H, Anion Gap 5, Blood Urea Nitrogen 13, Creatinine 1.0, Estimat Glomerular Filtration Rate , Glucose Level 191H, Calcium Level 9.2, Pro-B-Type Natriuretic Peptide 1936H, Thyroid Stimulating Hormone (TSH) 0.287L 11/02/17 07:40: Sodium Level [Pending], Potassium Level [Pending], Chloride Level [Pending], Carbon Dioxide Level [Pending], Blood Urea Nitrogen [Pending], Creatinine [ Pending], Estimat Glomerular Filtration Rate [Pending], Glucose Level [Pending] , Calcium Level [Pending], Pro-B-Type Natriuretic Peptide [Pending], Magnesium Level [Pending], Total Bilirubin [Pending], Aspartate Amino Transf (AST/SGOT) [ Pending], Alanine Aminotransferase (ALT/SGPT) [Pending], Alkaline Phosphatase [ Pending], Total Protein [Pending], Albumin [Pending], Globulin [Pending] Height (Feet): 5 Height (Inches): 3.00 Weight (Pounds): 226 Objective General Appearance: WD/WN, alert EENT: PERRL/EOMI Neck: supple Cardiovascular: irregularly irregular Respiratory/Chest: chest wall non-tender, rhonchi - bilaterally Abdomen: normal bowel sounds, non tender, soft, no organomegaly Extremities: normal range of motion Edema: mild edema 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
[2017-11-02 09:50] LABS: ALANINE AMINOTRANSFERASE 28 U/L (12-78); ALBUMIN 3.1 G/DL (3.4-5.0); ALBUMIN/GLOBULIN RATIO 0.7 (1.0-2.7); ALKALINE PHOSPHATASE 68 U/L (46-116); ANION GAP 4 mmol/L (5-15); ASPARTATE AMINO TRANSFERASE 20 U/L (15-37); BILIRUBIN,TOTAL 0.5 MG/DL (0.2-1.0); BLOOD UREA NITROGEN 12 mg/dL (7-18); CALCIUM 8.9 MG/DL (8.5-10.1); CARBON DIOXIDE 37 MMOL/L (21-32); CHLORIDE 101 MMOL/L (98-107); CREATININE 0.8 MG/DL (0.55-1.30); POTASSIUM 4.2 MMOL/L (3.5-5.1); SODIUM 142 MMOL/L (136-145)
[2017-11-02 12:00] VITALS: BP 134/67
--- NOTE | 2017-11-02 14:31 | Pulmonology Progress Note ---
Assessment/Plan Assessment/Plan IMPRESSION CHF possible Pneumonia PAF respiratory insufficiency atrial fibrillation, with RVR pulmonary hypertension PLAN diurese antibiotics oxygen venous US on xarelto rate control monitor for change cards evaluation lasix home meds follow up labs and ECG followup imaging impression, plan, and exam edited and reviewed in detail care discussed with RN Subjective Allergies: Coded Allergies: No Known Allergies (Unverified , 10/31/17) Subjective care noted oxygen needs noted d/w cards noted rapid afib Objective Last 24 Hour Vital Signs Date Time Temp Pulse Resp B/P (MAP) Pulse Ox O2 Delivery O2 Flow Rate FiO2 11/02/17 12:00 97.3 104 22 134/67 96 Nasal Cannula 2.0 11/02/17 12:00 91 11/02/17 08:19 120 145/86 11/02/17 08:00 97.3 120 20 145/86 92 Nasal Cannula 2.0 11/02/17 08:00 122 11/02/17 04:29 96.5 98 19 130/64 95 Nasal Cannula 11/02/17 04:00 88 11/02/17 00:34 97.3 100 19 129/88 96 Nasal Cannula 11/02/17 00:00 87 11/01/17 20:41 114 126/95 11/01/17 20:28 98.4 114 19 126/95 92 Nasal Cannula 11/01/17 20:00 87 11/01/17 18:38 103 133/80 11/01/17 16:00 87 11/01/17 15:31 96.4 85 18 133/80 100 Nasal Cannula 2.0 Intake and Output 11/01/17 11/02/17 19:00 07:00 Intake Total 820 ml 175 ml Output Total 600 ml Balance 820 ml -425 ml Intake Oral 820 ml 120 ml IV Total 55 ml Output Urine Total 600 ml # Voids 4 Objective WDWN NAD reduced breath sounds bilaterally with some crackles and rhonchi S1S2 iRR tachy without MRG NABS nontender no HSM no CC noted edema nonfocal Microbiology Date/Time Source Procedure Growth Status 10/31/17 16:37 Blood Blood Culture - Preliminary Staphylococcus Species Resulted 10/31/17 16:30 Blood Blood Culture - Preliminary Resulted 10/31/17 16:30 Nasal Nares Influenza Types A,B Antigen (MILAD) - Final Complete Laboratory Tests 11/02/17 07:40: Sodium Level 142, Potassium Level 4.2, Chloride Level 101, Carbon Dioxide Level 37H, Anion Gap 4L, Blood Urea Nitrogen 12, Creatinine 0.8, Estimat Glomerular Filtration Rate , Glucose Level 134H, Calcium Level 8.9, Magnesium Level 1.8, Total Bilirubin 0.5, Aspartate Amino Transf (AST/SGOT) 20, Alanine Aminotransferase (ALT/SGPT) 28, Alkaline Phosphatase 68, Pro-B-Type Natriuretic Peptide 1005H, Total Protein 7.4, Albumin 3.1L, Globulin 4.3, Albumin/Globulin Ratio 0.7L Current Medications Medications (Trade) Dose Ordered Sig/Butch Route PRN Reason Start Time Stop Time Status Last Admin Dose Admin Acetaminophen (Tylenol) 650 mg Q4H PRN ORAL Mild Pain/Temp > 100.5 10/31/17 20:45 11/30/17 20:44 11/02/17 08:19 Al Hydroxide/Mg Hydroxide (Mylanta) 30 ml Q4HR PRN ORAL acid reduction 10/31/17 20:45 11/30/17 20:44 Ceftriaxone Sodium 1 gm/ Dextrose 55 ml @ 110 mls/hr Q24H IVPB 10/31/17 23:30 11/07/17 23:29 11/01/17 23:35 Furosemide (Lasix) 40 mg DAILY IV 11/01/17 09:00 12/01/17 08:59 11/02/17 08:20 Metoprolol Tartrate (Lopressor) 50 mg Q12HR ORAL 11/01/17 21:00 12/01/17 20:59 11/02/17 08:19 Pantoprazole (Protonix) 40 mg DAILY ORAL 11/01/17 09:00 12/01/17 08:59 11/02/17 08:19 Potassium Chloride (K-Dur) 20 meq DAILY ORAL 11/01/17 18:30 12/01/17 18:29 11/02/17 08:17 Rivaroxaban (Xarelto) 15 mg QPM ORAL 11/01/17 16:30 12/01/17 16:29 11/01/17 16:07 Vancomycin HCl (Vanco rx to dose) 1 ea DAILY PRN MISC Per rx protocol 11/02/17 06:15 12/02/17 06:14 Vancomycin HCl 1 gm/Dextrose 275 ml @ 183.708 mls/hr Q24H IVPB 11/03/17 08:00 11/08/17 07:59 Zolpidem Tartrate (Ambien) 10 mg HSPRN PRN ORAL Insomnia 10/31/17 20:45 11/07/17 20:44 GLEN DELGADO Nov 02, 2017 14:31
[2017-11-02 16:00] VITALS: BP 129/71
[2017-11-02] MEDS: Xarelto 15mg tab ORAL SCH (16:00)
[2017-11-02 20:00] VITALS: BP 128/63
--- NOTE | 2017-11-02 21:02 | Progress Note ---
DATE: 11/02/2017 CARDIOLOGY PROGRESS NOTE SUBJECTIVE: The patient is still short of breath. She continues to have episodes of rapid atrial fibrillation. PHYSICAL EXAMINATION: VITAL SIGNS: Blood pressure 134/67, pulse 104, respirations 22, and afebrile. LUNGS: Coarse breath sounds. Scattered rales. HEART: Irregularly irregular rhythm. Normal S1 and S2. ABDOMEN: Soft. EXTREMITIES: A 1+ bilateral pitting edema. LABORATORY AND DIAGNOSTIC DATA: Magnesium 1.8. Potassium 4.2, BUN 12, and creatinine 0.8. Pro-natriuretic peptide has decreased to a 1000 from 1900. Venous duplex scan is still pending. IMPRESSION: 1. Atrial fibrillation with rapid ventricular response. 2. Acute on chronic diastolic congestive heart failure. 3. Severe pulmonary hypertension. 4. Possible pulmonary embolic events with lower extremity edema. PLAN: 1. Await venous duplex study. 2. Continue full anticoagulation. 3. Additional diuresis with intravenous furosemide. 4. Advance beta-alan for rate control and considered Cardizem in addition. 5. Replace potassium. Nilay Watters M.D. DR: ROSSI JOB#: [id number] CC:
--- NOTE | 2017-11-02 21:17 | Consultation ---
DATE OF CONSULTATION: 11/02/2017 INFECTIOUS DISEASES CONSULTATION CONSULTING PHYSICIAN: Chirag Almanza M.D. REFERRING PHYSICIAN: Tim Amado M.D. REASON FOR CONSULTATION: Left bilateral leg cellulitis and possible pneumonia. HISTORY OF PRESENTING ILLNESS: This is a 77-year-old lady with history of hypertension, congestive heart failure, and atrial fibrillation who came in with bilateral lower extremity swelling as well as pain and shortness of breath and cough. She was found to have bilateral leg cellulitis and a possible pneumonia and an Infectious Diseases consultation has been obtained for antibiotics. PAST MEDICAL HISTORY: 1. History of hypertension. 2. History of atrial fibrillation. 3. Congestive heart failure. MEDICATIONS: As an inpatient, she is on IV vancomycin, metoprolol, potassium, Xarelto, Protonix, Lasix, ceftriaxone, Tylenol, Ambien and Mylanta. ALLERGIES: No known drug allergies. SOCIAL HISTORY: She does not smoke, drink, or use drugs. FAMILY HISTORY: Noncontributory. REVIEW OF SYSTEMS: RESPIRATORY: No fever or chills. She has a cough. She has shortness of breath. No chest pain. CARDIAC: No chest pain. No palpitations. No dizziness. No syncope. GASTROINTESTINAL: No nausea. No vomiting. No abdominal pain or diarrhea. MUSCULOSKELETAL: She complains of leg pain. PHYSICAL EXAMINATION: VITAL SIGNS: Temperature of 97.3, T-max of 98.4, pulse 104, respiratory rate 22, blood pressure 134/67, and O2 saturation of 96%. HEENT: Pupils equally reactive to light and accommodation. Mouth appears clean without thrush. NECK: Supple. No adenopathy. No JVD. CARDIOVASCULAR: Regular rate and rhythm. No murmurs. LUNGS: Clear to auscultation bilaterally. No crackles. No wheezes. ABDOMEN: Soft and nontender. No organomegaly. EXTREMITIES: No cyanosis. No clubbing. Edema noted bilaterally with bilateral leg erythema right more than the left. LABORATORY AND DIAGNOSTIC DATA: White count 7.5, hemoglobin 13.1, hematocrit 42.4, MCV 93, and platelet count of 176 with neutrophils of 74%. Sodium 142, potassium 4.2, chloride 101, bicarbonate 37, BUN 12, creatinine 0.8, and glucose 134. Calcium 8.9. Total bilirubin 0.5. AST 20, ALT 28, and alkaline phosphatase 68. Beta-natriuretic peptide 1005. Total protein 7.4 and albumin 3.1. UA is showing 0 to 2 white cells. Blood cultures showing Staph species. Nasal swab was negative for influenza A and B. Chest x-ray showing prominent pulmonary vascularity mild interstitial edema noted. A 2D echocardiogram showing small posterior pericardial effusion, thickened mitral valve leaflets, trace mitral regurgitation, mild tricuspid regurgitation, and moderate pulmonary hypertension. ASSESSMENT: This is a 77-year-old lady with history of hypertension, congestive heart failure, and atrial fibrillation, who comes in and is found to have. 1. Bilateral leg cellulitis. 2. Would be concerned regarding a possible pneumonia. 3. She also has positive blood cultures with Staph species, would be concerned regarding possible endocarditis. PLAN: 1. Continue IV vancomycin and ceftriaxone for now. 2. We will order sputum for Gram stain and culture. 3. We will follow up cultures and adjust antibiotics accordingly. I would like to thank, Dr. Amado for this consultation. Chirag Almanza M.D. DR: TERESITA JOB#: [id number] CC: Tim Amado M.D.; Fax#: [phone]
[2017-11-02] MEDS: Amiodarone 200mg tab ORAL SCH (21:37)
[2017-11-02] MEDS: cefTRIAXone 1gm/D5W 55ml IVPB SCH ×2 (23:10)
[2017-11-03] VITALS: BP 115/87
[2017-11-03 04:00] VITALS: BP 116/66
[2017-11-03 07:55] LABS: BLOOD UREA NITROGEN 15 mg/dL (7-18); CALCIUM 9.1 MG/DL (8.5-10.1); CARBON DIOXIDE 42 MMOL/L (21-32); CHLORIDE 101 MMOL/L (98-107); CREATININE 0.8 MG/DL (0.55-1.30); POTASSIUM 3.6 MMOL/L (3.5-5.1); SODIUM 142 MMOL/L (136-145)
[2017-11-03 07:56] LABS: BASOPHILS % (AUTO) 0.3 % (0.0-2.0); EOSINOPHILS % (AUTO) 1.4 % (0.0-3.0); HEMOGLOBIN 12.5 G/DL (12.0-16.0); LYMPHOCYTES % (AUTO) 17.9 % (20.0-45.0); MEAN CORPUSCULAR VOLUME 94 FL (80-99); MONOCYTES % (AUTO) 6.2 % (1.0-10.0); NEUTROPHILS % (AUTO) 74.2 % (45.0-75.0); PLATELET COUNT 115 K/UL (150-450); RED BLOOD COUNT 4.14 M/UL (4.20-5.40); RED CELL DISTRIBUTION WIDTH 12.4 % (11.6-14.8); WHITE BLOOD COUNT 5.9 K/UL (4.8-10.8)
[2017-11-03 07:58] LABS: ANION GAP 1 mmol/L (5-15)
[2017-11-03 08:00] VITALS: BP 143/92
[2017-11-03] MEDS: Vancomycin 1gm/D5W 275ml IVPB SCH ×2 (08:36)
[2017-11-03] MEDS: Metoprolol Tartrate 50mg tab ORAL SCH ×2 (08:37→21:15)
[2017-11-03] MEDS: Amiodarone 200mg tab ORAL SCH ×2 (08:37→21:15)
--- NOTE | 2017-11-03 08:39 | Pulmonology Progress Note ---
Assessment/Plan Assessment/Plan IMPRESSION CHF possible Pneumonia PAF respiratory insufficiency atrial fibrillation, with RVR pulmonary hypertension PLAN diurese antibiotics oxygen venous US ordered on xarelto rate control per cards monitor for change lasix home meds follow up labs and ECG followup imaging not ready for dc yet impression, plan, and exam edited and reviewed in detail care discussed with RN Subjective Allergies: Coded Allergies: No Known Allergies (Unverified , 10/31/17) Subjective care noted oxygen needs noted d/w cards noted rapid afib and persistent Objective Last 24 Hour Vital Signs Date Time Temp Pulse Resp B/P (MAP) Pulse Ox O2 Delivery O2 Flow Rate FiO2 11/03/17 08:37 88 143/92 11/03/17 04:00 97.7 93 20 116/66 20 Nasal Cannula 11/03/17 04:00 107 11/03/17 00:00 98.2 95 20 115/87 99 Nasal Cannula 11/03/17 00:00 90 11/02/17 21:38 111 128/63 11/02/17 20:00 97.9 111 18 128/63 94 Room Air 11/02/17 20:00 129 11/02/17 16:00 97 11/02/17 16:00 97.3 93 20 129/71 96 Nasal Cannula 2.0 11/02/17 12:00 97.3 104 22 134/67 96 Nasal Cannula 2.0 11/02/17 12:00 91 Intake and Output 11/02/17 11/03/17 19:00 07:00 Intake Total 600 ml 200 ml Balance 600 ml 200 ml Intake Oral 600 ml 200 ml # Voids 5 Objective WDWN NAD reduced breath sounds bilaterally but without rhonchi S1S2 iRR tachy without MRG NABS nontender no HSM no CC noted edema nonfocal alert Microbiology Date/Time Source Procedure Growth Status 10/31/17 16:37 Blood Blood Culture - Preliminary Gram Positive Cocci Resulted 10/31/17 16:30 Blood Blood Culture - Preliminary Resulted 10/31/17 16:30 Nasal Nares Influenza Types A,B Antigen (MILAD) - Final Complete Laboratory Tests 11/03/17 06:45: White Blood Count 5.9, Red Blood Count 4.14L, Hemoglobin 12.5, Hematocrit 39.0, Mean Corpuscular Volume 94, Mean Corpuscular Hemoglobin 30.1, Mean Corpuscular Hemoglobin Concent 32.0, Red Cell Distribution Width 12.4, Platelet Count 115L, Mean Platelet Volume 8.9, Neutrophils (%) (Auto) 74.2, Lymphocytes (%) (Auto) 17.9L, Monocytes (%) (Auto) 6.2, Eosinophils (%) (Auto) 1.4, Basophils (%) (Auto ) 0.3, Sodium Level 142, Potassium Level 3.6, Chloride Level 101, Carbon Dioxide Level 42*H, Anion Gap 1L, Blood Urea Nitrogen 15, Creatinine 0.8, Estimat Glomerular Filtration Rate , Glucose Level 137H, Calcium Level 9.1 Current Medications Medications (Trade) Dose Ordered Sig/Butch Route PRN Reason Start Time Stop Time Status Last Admin Dose Admin Acetaminophen (Tylenol) 650 mg Q4H PRN ORAL Mild Pain/Temp > 100.5 10/31/17 20:45 11/30/17 20:44 11/02/17 08:19 Al Hydroxide/Mg Hydroxide (Mylanta) 30 ml Q4HR PRN ORAL acid reduction 10/31/17 20:45 11/30/17 20:44 Amiodarone HCl (Cordarone) 200 mg EVERY 12 HOURS ORAL 11/02/17 21:00 12/02/17 20:59 11/03/17 08:37 Ceftriaxone Sodium 1 gm/ Dextrose 55 ml @ 110 mls/hr Q24H IVPB 10/31/17 23:30 11/07/17 23:29 11/02/17 23:10 Furosemide (Lasix) 40 mg BID IV 11/02/17 18:30 12/01/17 18:29 11/03/17 08:37 Metoprolol Tartrate (Lopressor) 50 mg Q12HR ORAL 11/01/17 21:00 12/01/17 20:59 11/03/17 08:37 Pantoprazole (Protonix) 40 mg DAILY ORAL 11/01/17 09:00 12/01/17 08:59 11/03/17 08:37 Potassium Chloride (K-Dur) 20 meq BID ORAL 11/02/17 18:30 12/01/17 18:29 11/03/17 08:36 Rivaroxaban (Xarelto) 15 mg QPM ORAL 11/01/17 16:30 12/01/17 16:29 11/02/17 16:00 Vancomycin HCl (Vanco rx to dose) 1 ea DAILY PRN MISC Per rx protocol 11/02/17 06:15 12/02/17 06:14 Vancomycin HCl 1 gm/Dextrose 275 ml @ 183.708 mls/hr Q24H IVPB 11/03/17 08:00 11/08/17 07:59 11/03/17 08:36 Zolpidem Tartrate (Ambien) 10 mg HSPRN PRN ORAL Insomnia 10/31/17 20:45 11/07/17 20:44 GLEN DELGADO Nov 03, 2017 08:39
--- NOTE | 2017-11-03 10:19 | General Progress Note ---
Assessment/Plan Problem List: (1) PNA (pneumonia) ICD Codes: J18.9 - Pneumonia, unspecified organism SNOMED: 647334806 (2) Atrial fibrillation with RVR ICD Codes: I48.91 - Unspecified atrial fibrillation SNOMED: 340091130039181 (3) Acute exacerbation of CHF (congestive heart failure) ICD Codes: I50.9 - Heart failure, unspecified SNOMED: 52343670 Qualifiers: Qualified Codes: I50.9 - Heart failure, unspecified Status: stable Assessment/Plan resp care o2 cardiac rx/diuresis monitor lytes abx rate control per cards. Subjective ROS Limited/Unobtainable: No Constitutional: Reports: malaise, weakness HEENT: Reports: no symptoms Cardiovascular: Reports: irregular heart rate, palpitations Respiratory: Reports: cough, shortness of breath Gastrointestinal/Abdominal: Reports: no symptoms Genitourinary: Reports: no symptoms Neurologic/Psychiatric: Reports: no symptoms Endocrine: Reports: no symptoms Hematologic/Lymphatic: Reports: no symptoms Allergies: Coded Allergies: No Known Allergies (Unverified , 10/31/17) All Systems: reviewed and negative except above Subjective no events. less sob. cxr noted- still with chf. HR remains elevated. Objective Last 24 Hour Vital Signs Date Time Temp Pulse Resp B/P (MAP) Pulse Ox O2 Delivery O2 Flow Rate FiO2 11/03/17 08:37 88 143/92 11/03/17 04:00 97.7 93 20 116/66 20 Nasal Cannula 11/03/17 04:00 107 11/03/17 00:00 98.2 95 20 115/87 99 Nasal Cannula 11/03/17 00:00 90 11/02/17 21:38 111 128/63 11/02/17 20:00 97.9 111 18 128/63 94 Room Air 11/02/17 20:00 129 11/02/17 16:00 97 11/02/17 16:00 97.3 93 20 129/71 96 Nasal Cannula 2.0 11/02/17 12:00 97.3 104 22 134/67 96 Nasal Cannula 2.0 11/02/17 12:00 91 Intake and Output 11/02/17 11/03/17 19:00 07:00 Intake Total 600 ml 200 ml Balance 600 ml 200 ml Intake Oral 600 ml 200 ml # Voids 5 Laboratory Tests 11/03/17 06:45: White Blood Count 5.9, Red Blood Count 4.14L, Hemoglobin 12.5, Hematocrit 39.0, Mean Corpuscular Volume 94, Mean Corpuscular Hemoglobin 30.1, Mean Corpuscular Hemoglobin Concent 32.0, Red Cell Distribution Width 12.4, Platelet Count 115L, Mean Platelet Volume 8.9, Neutrophils (%) (Auto) 74.2, Lymphocytes (%) (Auto) 17.9L, Monocytes (%) (Auto) 6.2, Eosinophils (%) (Auto) 1.4, Basophils (%) (Auto ) 0.3, Sodium Level 142, Potassium Level 3.6, Chloride Level 101, Carbon Dioxide Level 42*H, Anion Gap 1L, Blood Urea Nitrogen 15, Creatinine 0.8, Estimat Glomerular Filtration Rate , Glucose Level 137H, Calcium Level 9.1 Height (Feet): 5 Height (Inches): 3.00 Weight (Pounds): 225 Objective General Appearance: WD/WN, alert EENT: PERRL/EOMI Neck: supple Cardiovascular: irregularly irregular Respiratory/Chest: chest wall non-tender, rhonchi - bilaterally Abdomen: normal bowel sounds, non tender, soft, no organomegaly Extremities: normal range of motion Edema: mild edema 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
--- NOTE | 2017-11-03 11:05 | Diagnostic Imaging Report ---
Indication: Dyspnea Comparison: 11/01/2017 A single view chest radiograph was obtained. Findings: No definite infiltrate or pulmonary vascular congestion identified. The heart is enlarged. The aorta is mildly enlarged consistent with atherosclerotic vascular disease. The bones are osteopenic. Impression: No acute disease
--- NOTE | 2017-11-03 11:48 | Infectious Diseases Prog Note ---
Assessment/Plan Assessment/Plan A; Bacteremia Pneumonia Cellulitis of legs Diastolic CHF Pulmonary HPN P: Continue Vancomycin & Rocephin Will f/u cultures Subjective ROS Limited/Unobtainable: No Constitutional: Reports: no symptoms, other HEENT: Reports: no symptoms Respiratory: Reports: shortness of breath, dry cough Cardiovascular: Reports: no symptoms Gastrointestinal/Abdominal: Reports: no symptoms Genitourinary: Reports: no symptoms Musculoskeletal: Reports: swelling, other - slightly better Allergies: Coded Allergies: No Known Allergies (Unverified , 10/31/17) Objective Vital Signs Last 24 Hour Vital Signs Date Time Temp Pulse Resp B/P (MAP) Pulse Ox O2 Delivery O2 Flow Rate FiO2 11/03/17 08:37 88 143/92 11/03/17 08:00 97.7 88 18 143/92 91 Nasal Cannula 2.0 11/03/17 08:00 146 11/03/17 04:00 97.7 93 20 116/66 20 Nasal Cannula 11/03/17 04:00 107 11/03/17 00:00 98.2 95 20 115/87 99 Nasal Cannula 11/03/17 00:00 90 11/02/17 21:38 111 128/63 11/02/17 20:00 97.9 111 18 128/63 94 Room Air 11/02/17 20:00 129 11/02/17 16:00 97 11/02/17 16:00 97.3 93 20 129/71 96 Nasal Cannula 2.0 11/02/17 12:00 97.3 104 22 134/67 96 Nasal Cannula 2.0 11/02/17 12:00 91 Height (Feet): 5 Height (Inches): 3.00 Weight (Pounds): 225 General Appearance: no acute distress HEENT: mucous membranes moist Respiratory/Chest: lungs clear Cardiovascular: tachycardia, irregularly irregular Abdomen: soft, non tender Extremities: other - edema of legs Neurologic/Psychiatric: alert, oriented x 3, responsive Microbiology Date/Time Source Procedure Growth Status 10/31/17 16:37 Blood Blood Culture - Preliminary Gram Positive Cocci Resulted 10/31/17 16:30 Blood Blood Culture - Preliminary Resulted 10/31/17 16:30 Nasal Nares Influenza Types A,B Antigen ([facility]) - Final Complete Laboratory Tests Test 11/03/17 06:45 White Blood Count 5.9 K/UL (4.8-10.8) Red Blood Count 4.14 M/UL (4.20-5.40) L Hemoglobin 12.5 G/DL (12.0-16.0) Hematocrit 39.0 % (37.0-47.0) Mean Corpuscular Volume 94 FL (80-99) Mean Corpuscular Hemoglobin 30.1 PG (27.0-31.0) Mean Corpuscular Hemoglobin Concent 32.0 G/DL (32.0-36.0) Red Cell Distribution Width 12.4 % (11.6-14.8) Platelet Count 115 K/UL (150-450) L Mean Platelet Volume 8.9 FL (6.5-10.1) Neutrophils (%) (Auto) 74.2 % (45.0-75.0) Lymphocytes (%) (Auto) 17.9 % (20.0-45.0) L Monocytes (%) (Auto) 6.2 % (1.0-10.0) Eosinophils (%) (Auto) 1.4 % (0.0-3.0) Basophils (%) (Auto) 0.3 % (0.0-2.0) Sodium Level 142 MMOL/L (136-145) Potassium Level 3.6 MMOL/L (3.5-5.1) Chloride Level 101 MMOL/L (98-107) Carbon Dioxide Level 42 MMOL/L (21-32) *H Anion Gap 1 mmol/L (5-15) L Blood Urea Nitrogen 15 mg/dL (7-18) Creatinine 0.8 MG/DL (0.55-1.30) Estimat Glomerular Filtration Rate mL/min (>60) Glucose Level 137 MG/DL (74-106) H Calcium Level 9.1 MG/DL (8.5-10.1) Current Medications Medications (Trade) Dose Ordered Sig/Butch Route PRN Reason Start Time Stop Time Status Last Admin Dose Admin Acetaminophen (Tylenol) 650 mg Q4H PRN ORAL Mild Pain/Temp > 100.5 10/31/17 20:45 11/30/17 20:44 11/02/17 08:19 Al Hydroxide/Mg Hydroxide (Mylanta) 30 ml Q4HR PRN ORAL acid reduction 10/31/17 20:45 11/30/17 20:44 Amiodarone HCl (Cordarone) 200 mg EVERY 12 HOURS ORAL 11/02/17 21:00 12/02/17 20:59 11/03/17 08:37 Ceftriaxone Sodium 1 gm/ Dextrose 55 ml @ 110 mls/hr Q24H IVPB 10/31/17 23:30 11/07/17 23:29 11/02/17 23:10 Furosemide (Lasix) 40 mg BID IV 11/02/17 18:30 12/01/17 18:29 11/03/17 08:37 Metoprolol Tartrate (Lopressor) 50 mg Q12HR ORAL 11/01/17 21:00 12/01/17 20:59 11/03/17 08:37 Pantoprazole (Protonix) 40 mg DAILY ORAL 11/01/17 09:00 12/01/17 08:59 11/03/17 08:37 Potassium Chloride (K-Dur) 20 meq BID ORAL 11/02/17 18:30 12/01/17 18:29 11/03/17 08:36 Rivaroxaban (Xarelto) 15 mg QPM ORAL 11/01/17 16:30 12/01/17 16:29 11/02/17 16:00 Vancomycin HCl (Vanco rx to dose) 1 ea DAILY PRN MISC Per rx protocol 11/02/17 06:15 12/02/17 06:14 Vancomycin HCl 1 gm/Dextrose 275 ml @ 183.708 mls/hr Q24H IVPB 11/03/17 08:00 11/08/17 07:59 11/03/17 08:36 Zolpidem Tartrate (Ambien) 10 mg HSPRN PRN ORAL Insomnia 10/31/17 20:45 11/07/17 20:44 HAYDER SEALS Nov 03, 2017 11:48
[2017-11-03 12:00] VITALS: BP 110/68
[2017-11-03 16:00] VITALS: BP 118/78
[2017-11-03] MEDS: Xarelto 15mg tab ORAL SCH (16:25)
[2017-11-03 20:00] VITALS: BP 118/69
--- NOTE | 2017-11-03 21:45 | Progress Note ---
DATE: 11/03/2017 CARDIOLOGY PROGRESS NOTE SUBJECTIVE: The patient still has shortness of breath. She notes resolution of her leg swelling. She has been urinating well when she gets her furosemide dose. She still has palpitation. OBJECTIVE: VITAL SIGNS: Blood pressure 143/92 and earlier 116/66, heart rate 88 to 107, respiratory rate 18 to 20, and she is afebrile. LUNGS: Bilateral breath sounds. Few rales. HEART: Irregularly irregular rhythm. Normal S1 and S2. ABDOMEN: Soft. EXTREMITIES: No edema. LABORATORY AND DIAGNOSTIC DATA: Chest x-ray noted. Venous duplex scan negative for DVT. IMPRESSION: 1. Acute on chronic diastolic congestive heart failure. 2. Paroxysmal atrial fibrillation with rapid ventricular response. 3. Pulmonary hypertension. PLAN: 1. Continue diuresis. 2. May continue beta-alan therapy and initiation of amiodarone. 3. Full anticoagulation for cardioembolic prophylaxis with apixaban. 4. EP consultation requested to assist with rate control. Nilay Watters M.D. DR: ROSSI JOB#: [id number] CC:
[2017-11-03] MEDS: cefTRIAXone 1gm/D5W 55ml IVPB SCH ×2 (23:26)
[2017-11-04] VITALS: BP 114/64
[2017-11-04 04:00] VITALS: BP 108/55
[2017-11-04 08:00] VITALS: BP 128/63
[2017-11-04] MEDS: Vancomycin 1gm/D5W 275ml IVPB SCH ×2 (08:16)
--- NOTE | 2017-11-04 08:17 | Pulmonology Progress Note ---
Assessment/Plan Assessment/Plan IMPRESSION CHF possible Pneumonia PAF respiratory insufficiency atrial fibrillation, with RVR pulmonary hypertension staph bacteremia PLAN diurese antibiotics oxygen venous US negative on xarelto rate control improved ID noted- antibiotics changed monitor for change lasix home meds await clearance from all not ready for dc yet impression, plan, and exam edited and reviewed in detail care discussed with RN Subjective Allergies: Coded Allergies: No Known Allergies (Unverified , 10/31/17) Subjective care noted oxygen needs noted ID noted afib controlled Objective Last 24 Hour Vital Signs Date Time Temp Pulse Resp B/P (MAP) Pulse Ox O2 Delivery O2 Flow Rate FiO2 11/04/17 04:05 98 Nasal Cannula 11/04/17 04:00 98.0 91 19 108/55 98 11/04/17 03:57 83 11/04/17 02:46 85 11/04/17 00:00 97 Nasal Cannula 11/04/17 00:00 98.2 103 19 114/64 98 11/03/17 21:15 123 118/69 11/03/17 20:00 98.0 108 19 118/69 99 11/03/17 20:00 99 Nasal Cannula 11/03/17 19:16 95 11/03/17 16:00 97.7 97 18 118/78 97 Nasal Cannula 11/03/17 16:00 99 11/03/17 12:00 98.2 99 18 110/68 96 Nasal Cannula 2.0 11/03/17 12:00 104 11/03/17 08:37 88 143/92 Intake and Output 11/03/17 11/04/17 19:00 07:00 Intake Total 730 ml 55 ml Balance 730 ml 55 ml Intake Oral 730 ml IV Total 55 ml # Voids 7 2 Objective WDWN NAD reduced breath sounds bilaterally but without rhonchi or wheeze S1S2 iRR rate controlled without MRG NABS nontender no HSM no CC noted edema nonfocal alert Current Medications Medications (Trade) Dose Ordered Sig/Butch Route PRN Reason Start Time Stop Time Status Last Admin Dose Admin Acetaminophen (Tylenol) 650 mg Q4H PRN ORAL Mild Pain/Temp > 100.5 10/31/17 20:45 11/30/17 20:44 11/02/17 08:19 Al Hydroxide/Mg Hydroxide (Mylanta) 30 ml Q4HR PRN ORAL acid reduction 10/31/17 20:45 11/30/17 20:44 Amiodarone HCl (Cordarone) 200 mg EVERY 12 HOURS ORAL 11/02/17 21:00 12/02/17 20:59 11/03/17 21:15 Ceftriaxone Sodium 1 gm/ Dextrose 55 ml @ 110 mls/hr Q24H IVPB 10/31/17 23:30 11/07/17 23:29 11/03/17 23:26 Furosemide (Lasix) 40 mg BID IV 11/02/17 18:30 12/01/17 18:29 11/03/17 19:14 Metoprolol Tartrate (Lopressor) 50 mg Q12HR ORAL 11/01/17 21:00 12/01/17 20:59 11/03/17 21:15 Pantoprazole (Protonix) 40 mg DAILY ORAL 11/01/17 09:00 12/01/17 08:59 11/03/17 08:37 Potassium Chloride (K-Dur) 20 meq BID ORAL 11/02/17 18:30 12/01/17 18:29 11/03/17 19:15 Rivaroxaban (Xarelto) 15 mg QPM ORAL 11/01/17 16:30 12/01/17 16:29 11/02/17 16:00 Vancomycin HCl (Vanco rx to dose) 1 ea DAILY PRN MISC Per rx protocol 11/02/17 06:15 12/02/17 06:14 Vancomycin HCl 1 gm/Dextrose 275 ml @ 183.708 mls/hr Q24H IVPB 11/03/17 08:00 11/08/17 07:59 11/03/17 08:36 Zolpidem Tartrate (Ambien) 10 mg HSPRN PRN ORAL Insomnia 10/31/17 20:45 11/07/17 20:44 GLEN DELGADO Nov 04, 2017 08:17
[2017-11-04] MEDS: Amiodarone 200mg tab ORAL SCH ×2 (08:18→20:52)
[2017-11-04] MEDS: Metoprolol Tartrate 50mg tab ORAL SCH (08:34)
--- NOTE | 2017-11-04 09:23 | General Progress Note ---
Assessment/Plan Problem List: (1) PNA (pneumonia) ICD Codes: J18.9 - Pneumonia, unspecified organism SNOMED: 780897871 (2) Atrial fibrillation with RVR ICD Codes: I48.91 - Unspecified atrial fibrillation SNOMED: 625318685190665 (3) Acute exacerbation of CHF (congestive heart failure) ICD Codes: I50.9 - Heart failure, unspecified SNOMED: 08699008 Qualifiers: Qualified Codes: I50.9 - Heart failure, unspecified Assessment/Plan resp care o2 cardiac rx/diuresis monitor lytes abx rate control per cards. dc planning Subjective ROS Limited/Unobtainable: No Constitutional: Reports: malaise, weakness HEENT: Reports: no symptoms Cardiovascular: Reports: irregular heart rate Respiratory: Reports: cough Gastrointestinal/Abdominal: Reports: no symptoms Genitourinary: Reports: no symptoms Neurologic/Psychiatric: Reports: no symptoms Endocrine: Reports: no symptoms Hematologic/Lymphatic: Reports: no symptoms Allergies: Coded Allergies: No Known Allergies (Unverified , 10/31/17) All Systems: reviewed and negative except above Subjective no events. less sob. cxr noted- improved. HR better controlled. still with some cough Objective Last 24 Hour Vital Signs Date Time Temp Pulse Resp B/P (MAP) Pulse Ox O2 Delivery O2 Flow Rate FiO2 11/04/17 08:34 94 128/63 11/04/17 08:00 97.0 94 18 128/63 100 Nasal Cannula 11/04/17 04:05 98 Nasal Cannula 11/04/17 04:00 98.0 91 19 108/55 98 11/04/17 03:57 83 11/04/17 02:46 85 11/04/17 00:00 97 Nasal Cannula 11/04/17 00:00 98.2 103 19 114/64 98 11/03/17 21:15 123 118/69 11/03/17 20:00 98.0 108 19 118/69 99 11/03/17 20:00 99 Nasal Cannula 11/03/17 19:16 95 11/03/17 16:00 97.7 97 18 118/78 97 Nasal Cannula 11/03/17 16:00 99 11/03/17 12:00 98.2 99 18 110/68 96 Nasal Cannula 2.0 11/03/17 12:00 104 Intake and Output 1/18/18 1/19/18 19:00 07:00 Intake Total 730 ml 55 ml Balance 730 ml 55 ml Intake Oral 730 ml IV Total 55 ml # Voids 7 2 Height (Feet): 5 Height (Inches): 3.00 Weight (Pounds): 225 Objective General Appearance: WD/WN, alert EENT: PERRL/EOMI Neck: supple Cardiovascular: irregularly irregular Respiratory/Chest: chest wall non-tender, rhonchi - bilaterally Abdomen: normal bowel sounds, non tender, soft, no organomegaly Extremities: normal range of motion Edema: mild edema 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
[2017-11-04 12:00] VITALS: BP 112/77
--- NOTE | 2017-11-04 12:34 | Infectious Diseases Prog Note ---
Assessment/Plan Assessment/Plan antibiotics : vancomycin iv, ceftriaxone A 1. leg cellulitis improving bilaterally 2. staph sepsis 3. HTN 4. CHF P 1. continue iv vancomycin 2. d/c ceftriaxone 3. will follow up cultures Subjective Constitutional: Denies: fever, chills Respiratory: Denies: shortness of breath, dry cough Gastrointestinal/Abdominal: Denies: nausea, vomiting, diarrhea Musculoskeletal: Reports: pain Allergies: Coded Allergies: No Known Allergies (Unverified , 10/31/17) Objective Vital Signs Last 24 Hour Vital Signs Date Time Temp Pulse Resp B/P (MAP) Pulse Ox O2 Delivery O2 Flow Rate FiO2 11/04/17 08:34 94 128/63 11/04/17 08:00 103 11/04/17 08:00 97.0 94 18 128/63 100 Nasal Cannula 11/04/17 04:05 98 Nasal Cannula 11/04/17 04:00 98.0 91 19 108/55 98 11/04/17 03:57 83 11/04/17 02:46 85 11/04/17 00:00 97 Nasal Cannula 11/04/17 00:00 98.2 103 19 114/64 98 11/03/17 21:15 123 118/69 11/03/17 20:00 98.0 108 19 118/69 99 11/03/17 20:00 99 Nasal Cannula 11/03/17 19:16 95 11/03/17 16:00 97.7 97 18 118/78 97 Nasal Cannula 11/03/17 16:00 99 Height (Feet): 5 Height (Inches): 3.00 Weight (Pounds): 225 Respiratory/Chest: lungs clear Cardiovascular: normal rate, regular rhythm, no gallop/murmur Abdomen: soft, non tender Extremities: other - right and left leg erythema decreased Current Medications Medications (Trade) Dose Ordered Sig/Butch Route PRN Reason Start Time Stop Time Status Last Admin Dose Admin Acetaminophen (Tylenol) 650 mg Q4H PRN ORAL Mild Pain/Temp > 100.5 10/31/17 20:45 11/30/17 20:44 11/02/17 08:19 Al Hydroxide/Mg Hydroxide (Mylanta) 30 ml Q4HR PRN ORAL acid reduction 10/31/17 20:45 11/30/17 20:44 Amiodarone HCl (Cordarone) 200 mg EVERY 12 HOURS ORAL 1/17/18 21:00 12/02/17 20:59 11/04/17 08:18 Ceftriaxone Sodium 1 gm/ Dextrose 55 ml @ 110 mls/hr Q24H IVPB 10/31/17 23:30 11/07/17 23:29 11/03/17 23:26 Furosemide (Lasix) 40 mg BID IV 11/02/17 18:30 12/01/17 18:29 11/04/17 08:18 Metoprolol Tartrate (Lopressor) 50 mg Q12HR ORAL 11/01/17 21:00 12/01/17 20:59 11/04/17 08:34 Pantoprazole (Protonix) 40 mg DAILY ORAL 11/01/17 09:00 12/01/17 08:59 11/04/17 08:19 Potassium Chloride (K-Dur) 20 meq BID ORAL 11/02/17 18:30 12/01/17 18:29 11/04/17 08:20 Rivaroxaban (Xarelto) 15 mg QPM ORAL 11/01/17 16:30 12/01/17 16:29 11/02/17 16:00 Vancomycin HCl (Vanco rx to dose) 1 ea DAILY PRN MISC Per rx protocol 11/02/17 06:15 12/02/17 06:14 Vancomycin HCl 1 gm/Dextrose 275 ml @ 183.708 mls/hr Q24H IVPB 11/03/17 08:00 11/08/17 07:59 11/04/17 08:16 Zolpidem Tartrate (Ambien) 10 mg HSPRN PRN ORAL Insomnia 10/31/17 20:45 11/07/17 20:44 JG SINHA Nov 04, 2017 12:34
--- NOTE | 2017-11-04 13:24 | Cardiac Electrophysiology PN ---
Subjective Subjective EP consult dictated [id number] Objective Last 24 Hour Vital Signs Date Time Temp Pulse Resp B/P (MAP) Pulse Ox O2 Delivery O2 Flow Rate FiO2 11/04/17 08:34 94 128/63 11/04/17 08:00 103 11/04/17 08:00 97.0 94 18 128/63 100 Nasal Cannula 11/04/17 04:05 98 Nasal Cannula 11/04/17 04:00 98.0 91 19 108/55 98 11/04/17 03:57 83 11/04/17 02:46 85 11/04/17 00:00 97 Nasal Cannula 11/04/17 00:00 98.2 103 19 114/64 98 11/03/17 21:15 123 118/69 11/03/17 20:00 98.0 108 19 118/69 99 11/03/17 20:00 99 Nasal Cannula 11/03/17 19:16 95 11/03/17 16:00 97.7 97 18 118/78 97 Nasal Cannula 11/03/17 16:00 99 Intake and Output 11/03/17 11/04/17 19:00 07:00 Intake Total 730 ml 55 ml Balance 730 ml 55 ml Intake Oral 730 ml IV Total 55 ml # Voids 7 2 DEVON BEJARANO Nov 04, 2017 13:23
[2017-11-04 16:00] VITALS: BP 124/79
[2017-11-04] MEDS: Xarelto 15mg tab ORAL SCH (16:30)
[2017-11-04 20:00] VITALS: BP 116/65
--- NOTE | 2017-11-04 22:45 | Consultation ---
DATE OF CONSULTATION: 11/04/2017 CARDIAC ELECTROPHYSIOLOGY CONSULTATION CONSULTING PHYSICIAN: Coleman Morton M.D. REFERRING PHYSICIAN: Nilay Watters M.D. REASON FOR CONSULTATION: Atrial fibrillation. HISTORY OF PRESENT ILLNESS: The patient is a 77-year-old [place] lady with history of hypertension, paroxysmal atrial fibrillation, congestive heart failure, and arthritis who presented to emergency room with increasing shortness of breath and leg swelling. The patient stated that she has had irregular heartbeats in the past, but had not had any ablation or any procedures for that. The patient was admitted and was evaluated by Dr. Watters and was subsequently asked for an electrophysiology consultation for further evaluation and management. PAST MEDICAL HISTORY: 1. Hypertension. 2. Congestive heart failure. 3. Paroxysmal atrial fibrillation. 4. History of degenerative joint disease. ALLERGIES: She has no known drug allergies. CURRENT MEDICATIONS: Amiodarone 200 mg b.i.d., Lasix 40 mg IV b.i.d., metoprolol 50 mg b.i.d., Xarelto 50 mg daily, as well as vancomycin. SOCIAL HISTORY: She does not smoke or drink alcohol. FAMILY HISTORY: Noncontributory. REVIEW OF SYSTEMS: Negative other than what was mentioned in the history of present illness. PHYSICAL EXAMINATION: VITAL SIGNS: Blood pressure is 122/63, pulse 94, respirations 18, and she is afebrile. HEAD AND NECK: No JVD or carotid bruit. LUNGS: Clear. CARDIOVASCULAR: Regular S1 and S2 with no gallop or murmur. ABDOMEN: Soft and nontender. EXTREMITIES: 2+ pitting edema. LABORATORY AND DIAGNOSTIC DATA: EKG showed atrial fibrillation at rate of 100. Currently, telemetry strip showed atrial fibrillation at a rate of 120. Labs show white count of 5.9, hemoglobin 12.5, hematocrit of 39, and platelet count is 115. Sodium 142, potassium 3.6, BUN of 15, and creatinine of 0.8. ASSESSMENT AND PLAN: 1. Atrial fibrillation with rapid ventricular response. The patient is already on amiodarone 200 mg b.i.d. Increase metoprolol to 100 mg b.i.d. She is also on anticoagulation with Xarelto. It is of note, that the patient's echocardiogram showed ejection fraction of 60% to 65% with no aortic regurgitation with mold pulmonary hypertension. 2. Hypertension. Again increase metoprolol to 100 mg b.i.d. to help control the rate. In the meantime, the patient is on Lasix. 3. Lower extremity edema and congestive heart failure due to diastolic dysfunction, under management of Dr. Watters. Lasix will be decrease to 40 mg IV daily. 4. Lower extremity cellulitis and sepsis. The patient is on IV vancomycin per Dr. Almanza. Thank you very much, Dr. Watters, for allowing me to participate in the care of this patient. Please do not hesitate to contact me if you have any questions regarding my evaluation. Coleman Morton M.D. DR: KEDAR JOB#: [id number] CC:
[2017-11-05 08:00] VITALS: BP 138/72
[2017-11-05] MEDS: Vancomycin 1gm/D5W 275ml IVPB SCH ×4 (08:54→22:13)
[2017-11-05] MEDS: Amiodarone 200mg tab ORAL SCH ×2 (08:55→22:00)
--- NOTE | 2017-11-05 11:34 | General Progress Note ---
Assessment/Plan Problem List: (1) PNA (pneumonia) ICD Codes: J18.9 - Pneumonia, unspecified organism SNOMED: 668211867 (2) Atrial fibrillation with RVR ICD Codes: I48.91 - Unspecified atrial fibrillation SNOMED: 338001607031693 (3) Acute exacerbation of CHF (congestive heart failure) ICD Codes: I50.9 - Heart failure, unspecified SNOMED: 69913930 Qualifiers: Qualified Codes: I50.9 - Heart failure, unspecified Status: stable, progressing Assessment/Plan resp care o2 cardiac rx/diuresis monitor lytes abx rate control per cards. Subjective ROS Limited/Unobtainable: No Constitutional: Reports: malaise, weakness HEENT: Reports: no symptoms Cardiovascular: Reports: irregular heart rate Respiratory: Reports: cough Gastrointestinal/Abdominal: Reports: no symptoms Genitourinary: Reports: no symptoms Neurologic/Psychiatric: Reports: no symptoms Endocrine: Reports: no symptoms Hematologic/Lymphatic: Reports: no symptoms Allergies: Coded Allergies: No Known Allergies (Unverified , 10/31/17) All Systems: reviewed and negative except above Subjective no events. less sob but still doesnt feel well. cxr noted- improved. HR better controlled. still with some cough Objective Last 24 Hour Vital Signs Date Time Temp Pulse Resp B/P (MAP) Pulse Ox O2 Delivery O2 Flow Rate FiO2 11/05/17 08:55 71 132/90 11/05/17 08:00 97.2 71 20 138/72 92 Nasal Cannula 11/05/17 04:00 68 11/05/17 00:00 67 11/04/17 21:51 98.1 11/04/17 20:52 103 116/65 11/04/17 20:00 20 99 Nasal Cannula 11/04/17 20:00 98.1 103 20 116/65 99 11/04/17 20:00 126 11/04/17 16:00 97.6 81 18 124/79 98 Nasal Cannula 11/04/17 16:00 105 11/04/17 12:00 123 11/04/17 12:00 97.7 79 18 112/77 100 Nasal Cannula Intake and Output 11/04/17 11/05/17 19:00 07:00 Intake Total 236 ml 472 ml Balance 236 ml 472 ml Intake Oral 236 ml 472 ml # Voids 1 5 Laboratory Tests 11/04/17 16:30: Arterial Blood pH 7.388, Arterial Blood Partial Pressure CO2 56.7*H, Arterial Blood Partial Pressure O2 137.3H, Arterial Blood HCO3 33.4H, Arterial Blood Oxygen Saturation 98.3H, Arterial Blood Base Excess 6.8, Beto Test Positive 11/05/17 07:25: Vancomycin Level Trough 5.4 Height (Feet): 5 Height (Inches): 3.00 Weight (Pounds): 221 Objective General Appearance: WD/WN, alert EENT: PERRL/EOMI Neck: supple Cardiovascular: irregularly irregular Respiratory/Chest: chest wall non-tender, rhonchi - bilaterally Abdomen: normal bowel sounds, non tender, soft, no organomegaly Extremities: normal range of motion Edema: mild edema 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
--- NOTE | 2017-11-05 11:53 | Pulmonology Progress Note ---
Assessment/Plan Assessment/Plan IMPRESSION CHF possible Pneumonia PAF respiratory insufficiency atrial fibrillation, with RVR pulmonary hypertension staph bacteremia hypercapnia PLAN diurese will need outpatient sleep study and PFT to assess for underlying etiology consider right heart cath with pulmonary hypertension antibiotics and ID clearance oxygen on xarelto rate control improved home meds await clearance from all not ready for dc yet impression, plan, and exam edited and reviewed in detail care discussed with RN Subjective Allergies: Coded Allergies: No Known Allergies (Unverified , 10/31/17) Subjective care noted oxygen needs noted ID noted afib controlled respiratory acidosis noted Objective Last 24 Hour Vital Signs Date Time Temp Pulse Resp B/P (MAP) Pulse Ox O2 Delivery O2 Flow Rate FiO2 11/05/17 08:55 71 132/90 11/05/17 08:00 97.2 71 20 138/72 92 Nasal Cannula 11/05/17 04:00 68 11/05/17 00:00 67 11/04/17 21:51 98.1 11/04/17 20:52 103 116/65 11/04/17 20:00 20 99 Nasal Cannula 11/04/17 20:00 98.1 103 20 116/65 99 11/04/17 20:00 126 11/04/17 16:00 97.6 81 18 124/79 98 Nasal Cannula 11/04/17 16:00 105 11/04/17 12:00 123 11/04/17 12:00 97.7 79 18 112/77 100 Nasal Cannula Intake and Output 11/04/17 11/05/17 19:00 07:00 Intake Total 236 ml 472 ml Balance 236 ml 472 ml Intake Oral 236 ml 472 ml # Voids 1 5 Objective WDWN NAD reduced breath sounds bilaterally but without rhonchi or wheeze S1S2 iRR rate controlled without MRG NABS nontender no HSM no CC noted edema nonfocal alert and oriented Laboratory Tests 11/04/17 16:30: Arterial Blood pH 7.388, Arterial Blood Partial Pressure CO2 56.7*H, Arterial Blood Partial Pressure O2 137.3H, Arterial Blood HCO3 33.4H, Arterial Blood Oxygen Saturation 98.3H, Arterial Blood Base Excess 6.8, Beto Test Positive 11/05/17 07:25: Vancomycin Level Trough 5.4 Current Medications Medications (Trade) Dose Ordered Sig/Butch Route PRN Reason Start Time Stop Time Status Last Admin Dose Admin Acetaminophen (Tylenol) 650 mg Q4H PRN ORAL Mild Pain/Temp > 100.5 10/31/17 20:45 11/30/17 20:44 11/04/17 20:52 Al Hydroxide/Mg Hydroxide (Mylanta) 30 ml Q4HR PRN ORAL acid reduction 10/31/17 20:45 11/30/17 20:44 Amiodarone HCl (Cordarone) 200 mg EVERY 12 HOURS ORAL 11/02/17 21:00 12/02/17 20:59 11/05/17 08:55 Furosemide (Lasix) 40 mg DAILY IV 11/05/17 09:00 12/01/17 18:29 11/05/17 08:56 Metoprolol Tartrate (Lopressor) 100 mg Q12HR ORAL 11/04/17 21:00 12/04/17 20:59 11/05/17 08:55 Pantoprazole (Protonix) 40 mg DAILY ORAL 11/01/17 09:00 12/01/17 08:59 11/05/17 08:55 Potassium Chloride (K-Dur) 20 meq BID ORAL 11/02/17 18:30 12/01/17 18:29 11/05/17 08:56 Rivaroxaban (Xarelto) 15 mg QPM ORAL 11/01/17 16:30 12/01/17 16:29 11/02/17 16:00 Vancomycin HCl (Vanco rx to dose) 1 ea DAILY PRN MISC Per rx protocol 11/02/17 06:15 12/02/17 06:14 Vancomycin HCl 1 gm/Dextrose 275 ml @ 183.708 mls/hr Q12HR@0600,1800 IVPB 11/05/17 18:00 11/10/17 17:59 Zolpidem Tartrate (Ambien) 10 mg HSPRN PRN ORAL Insomnia 10/31/17 20:45 11/07/17 20:44 GLEN DELGADO Nov 05, 2017 11:53
[2017-11-05 12:00] VITALS: BP 118/71
--- NOTE | 2017-11-05 13:25 | Cardiac Electrophysiology PN ---
Assessment/Plan Assessment/Plan 1. Atrial fibrillation with rapid ventricular response. On amiodarone 200 mg b.i.d. and metoprolol 100 mg b.i.d. and Xarelto. EF 60% to 65% 2. Hypertension. on metoprolol 100 mg b.i.d. and Lasix. 3. Lower extremity edema and congestive heart failure due to diastolic dysfunction, under management of Dr. Watters. On Lasix 40 mg IV daily. 4. Lower extremity cellulitis and sepsis. The patient is on IV vancomycin per Dr. Almanza. DIEGO RN Subjective Subjective Remained in atrial fib with rate in 90s. No chest pain. Objective Last 24 Hour Vital Signs Date Time Temp Pulse Resp B/P (MAP) Pulse Ox O2 Delivery O2 Flow Rate FiO2 11/05/17 08:55 71 132/90 11/05/17 08:00 97.2 71 20 138/72 92 Nasal Cannula 11/05/17 04:00 68 11/05/17 00:00 67 11/04/17 21:51 98.1 11/04/17 20:52 103 116/65 11/04/17 20:00 20 99 Nasal Cannula 11/04/17 20:00 98.1 103 20 116/65 99 11/04/17 20:00 126 11/04/17 16:00 97.6 81 18 124/79 98 Nasal Cannula 11/04/17 16:00 105 Intake and Output 11/04/17 11/05/17 19:00 07:00 Intake Total 236 ml 472 ml Balance 236 ml 472 ml Intake Oral 236 ml 472 ml # Voids 1 5 Laboratory Tests Test 11/04/17 16:30 11/05/17 07:25 Arterial Blood pH 7.388 (7.350-7.450) Arterial Blood Partial Pressure CO2 56.7 mmHg (35.0-45.0) *H Arterial Blood Partial Pressure O2 137.3 mmHg (75.0-100.0) H Arterial Blood HCO3 33.4 mmol/L (22.0-26.0) H Arterial Blood Oxygen Saturation 98.3 % (92.0-98.0) H Arterial Blood Base Excess 6.8 Beto Test Positive Vancomycin Level Trough 5.4 ug/mL (5.0-12.0) Objective HEAD AND NECK: No JVD or carotid bruit. LUNGS: Clear. CARDIOVASCULAR: Irregular S1 and S2 with no gallop or murmur. ABDOMEN: Soft and nontender. EXTREMITIES: 2+ pitting edema. DEVON BEJARANO Nov 05, 2017 13:24
[2017-11-05 15:44] VITALS: BP 114/68
[2017-11-05] MEDS: Xarelto 15mg tab ORAL SCH (15:58)
[2017-11-05] MEDS ORDERED: Vancomycin 1gm/D5W 275ml IVPB SCH ×2 (18:00)
[2017-11-05 20:38] VITALS: BP 118/83
[2017-11-06 00:37] VITALS: BP 109/78
[2017-11-06 04:27] VITALS: BP 119/69
[2017-11-06 08:00] VITALS: BP 119/74
[2017-11-06] MEDS: Amiodarone 200mg tab ORAL SCH ×2 (09:21→20:25)
--- NOTE | 2017-11-06 09:36 | Pulmonology Progress Note ---
Assessment/Plan Assessment/Plan IMPRESSION CHF possible Pneumonia PAF respiratory insufficiency atrial fibrillation, with RVR pulmonary hypertension staph bacteremia hypercapnia PLAN diurese as able will need outpatient sleep study and PFT to assess for underlying etiology consider right heart cath with pulmonary hypertension antibiotics and ID clearance oxygen as needed on xarelto rate control improved home meds await clearance from all not ready for dc yet impression, plan, and exam edited and reviewed in detail care discussed with RN Subjective Allergies: Coded Allergies: No Known Allergies (Unverified , 10/31/17) Subjective care noted oxygen needs noted ID noted afib controlled respiratory acidosis noted Objective Last 24 Hour Vital Signs Date Time Temp Pulse Resp B/P (MAP) Pulse Ox O2 Delivery O2 Flow Rate FiO2 11/06/17 09:20 103 103/46 11/06/17 04:27 97.8 75 19 119/69 97 Nasal Cannula 11/06/17 04:00 74 11/06/17 00:37 97.0 87 19 109/78 98 Nasal Cannula 11/06/17 00:00 87 11/05/17 22:00 119 122/71 11/05/17 20:38 97.9 103 19 118/83 97 Nasal Cannula 11/05/17 20:00 98 11/05/17 16:00 0 11/05/17 15:44 98.2 20 114/68 92 11/05/17 12:00 85 11/05/17 12:00 98.2 75 20 118/71 93 Nasal Cannula Intake and Output 11/05/17 11/06/17 19:00 07:00 Intake Total 840 ml 275.000 ml Output Total 600 ml Balance 840 ml -325.000 ml Intake Oral 840 ml IV Total 275.000 ml Output Urine Total 600 ml # Voids 3 Objective WDWN NAD reduced breath sounds bilaterally but without rhonchi or wheeze S1S2 iRR rate controlled without MRG NABS nontender no HSM no CC noted edema nonfocal alert and oriented Current Medications Medications (Trade) Dose Ordered Sig/Butch Route PRN Reason Start Time Stop Time Status Last Admin Dose Admin Acetaminophen (Tylenol) 650 mg Q4H PRN ORAL Mild Pain/Temp > 100.5 10/31/17 20:45 11/30/17 20:44 11/06/17 09:30 Al Hydroxide/Mg Hydroxide (Mylanta) 30 ml Q4HR PRN ORAL acid reduction 10/31/17 20:45 11/30/17 20:44 Amiodarone HCl (Cordarone) 200 mg EVERY 12 HOURS ORAL 11/02/17 21:00 12/02/17 20:59 11/06/17 09:21 Furosemide (Lasix) 40 mg DAILY IV 11/05/17 09:00 12/01/17 18:29 11/06/17 09:21 Metoprolol Tartrate (Lopressor) 100 mg Q12HR ORAL 11/04/17 21:00 12/04/17 20:59 11/06/17 09:20 Pantoprazole (Protonix) 40 mg DAILY ORAL 11/01/17 09:00 12/01/17 08:59 11/06/17 09:20 Potassium Chloride (K-Dur) 20 meq BID ORAL 11/02/17 18:30 12/01/17 18:29 11/06/17 09:20 Rivaroxaban (Xarelto) 15 mg QPM ORAL 11/01/17 16:30 12/01/17 16:29 11/05/17 15:58 Vancomycin HCl (Vanco rx to dose) 1 ea DAILY PRN MISC Per rx protocol 11/02/17 06:15 12/02/17 06:14 Vancomycin HCl 1 gm/Dextrose 275 ml @ 183.708 mls/hr Q12HR@1000,2200 IVPB 11/05/17 22:00 11/10/17 21:59 11/05/17 22:13 Zolpidem Tartrate (Ambien) 10 mg HSPRN PRN ORAL Insomnia 10/31/17 20:45 11/07/17 20:44 GLEN DELGADO Nov 06, 2017 09:36
[2017-11-06] MEDS: Vancomycin 1gm/D5W 275ml IVPB SCH ×4 (10:54→21:26)
--- NOTE | 2017-11-06 10:54 | General Progress Note ---
Assessment/Plan Problem List: (1) PNA (pneumonia) ICD Codes: J18.9 - Pneumonia, unspecified organism SNOMED: 894826955 (2) Atrial fibrillation with RVR ICD Codes: I48.91 - Unspecified atrial fibrillation SNOMED: 138920119731896 (3) Acute exacerbation of CHF (congestive heart failure) ICD Codes: I50.9 - Heart failure, unspecified SNOMED: 82752108 Qualifiers: Qualified Codes: I50.9 - Heart failure, unspecified Status: stable, progressing Assessment/Plan resp care o2 cardiac rx/diuresis monitor lytes abx rate control per cards. dc planning Subjective ROS Limited/Unobtainable: No Constitutional: Reports: malaise, weakness HEENT: Reports: no symptoms Cardiovascular: Reports: irregular heart rate, palpitations Respiratory: Reports: SOB with excertion Gastrointestinal/Abdominal: Reports: no symptoms Genitourinary: Reports: no symptoms Endocrine: Reports: no symptoms Hematologic/Lymphatic: Reports: no symptoms Allergies: Coded Allergies: No Known Allergies (Unverified , 10/31/17) All Systems: reviewed and negative except above Subjective no events. feels well. cxr noted- improved. HR better controlled. still with some cough Objective Last 24 Hour Vital Signs Date Time Temp Pulse Resp B/P (MAP) Pulse Ox O2 Delivery O2 Flow Rate FiO2 11/06/17 09:20 103 103/46 11/06/17 08:00 97.9 103 18 119/74 97 Nasal Cannula 11/06/17 04:27 97.8 75 19 119/69 97 Nasal Cannula 11/06/17 04:00 74 11/06/17 00:37 97.0 87 19 109/78 98 Nasal Cannula 11/06/17 00:00 87 11/05/17 22:00 119 122/71 11/05/17 20:38 97.9 103 19 118/83 97 Nasal Cannula 11/05/17 20:00 98 11/05/17 16:00 0 11/05/17 15:44 98.2 20 114/68 92 11/05/17 12:00 85 11/05/17 12:00 98.2 75 20 118/71 93 Nasal Cannula Intake and Output 11/05/17 11/06/17 19:00 07:00 Intake Total 840 ml 275.000 ml Output Total 600 ml Balance 840 ml -325.000 ml Intake Oral 840 ml IV Total 275.000 ml Output Urine Total 600 ml # Voids 3 Laboratory Tests 11/06/17 09:30: Vancomycin Level Trough 12.4H Height (Feet): 5 Height (Inches): 3.00 Weight (Pounds): 225 Objective General Appearance: WD/WN, alert EENT: PERRL/EOMI Neck: supple Cardiovascular: irregularly irregular Respiratory/Chest: chest wall non-tender, rhonchi - bilaterally Abdomen: normal bowel sounds, non tender, soft, no organomegaly Extremities: normal range of motion Edema: mild edema 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
--- NOTE | 2017-11-06 11:54 | Infectious Diseases Prog Note ---
Assessment/Plan Assessment/Plan A; Bacteremia Pneumonia Cellulitis of legs Diastolic CHF Pulmonary HPN P: Continue Vancomycin Subjective ROS Limited/Unobtainable: No Constitutional: Reports: no symptoms, other - doing better Respiratory: Reports: shortness of breath, dry cough Gastrointestinal/Abdominal: Reports: no symptoms Genitourinary: Reports: no symptoms Allergies: Coded Allergies: No Known Allergies (Unverified , 10/31/17) Objective Vital Signs Last 24 Hour Vital Signs Date Time Temp Pulse Resp B/P (MAP) Pulse Ox O2 Delivery O2 Flow Rate FiO2 11/06/17 09:20 103 103/46 11/06/17 08:00 99 11/06/17 08:00 97.9 103 18 119/74 97 Nasal Cannula 11/06/17 04:27 97.8 75 19 119/69 97 Nasal Cannula 11/06/17 04:00 74 11/06/17 00:37 97.0 87 19 109/78 98 Nasal Cannula 11/06/17 00:00 87 11/05/17 22:00 119 122/71 11/05/17 20:38 97.9 103 19 118/83 97 Nasal Cannula 11/05/17 20:00 98 11/05/17 16:00 0 11/05/17 15:44 98.2 20 114/68 92 11/05/17 12:00 85 11/05/17 12:00 98.2 75 20 118/71 93 Nasal Cannula Height (Feet): 5 Height (Inches): 3.00 Weight (Pounds): 225 General Appearance: no acute distress HEENT: mucous membranes moist Respiratory/Chest: lungs clear, other - kyphosis Cardiovascular: normal rate Abdomen: soft, non tender Extremities: other - edema of legs Neurologic/Psychiatric: alert, oriented x 3, responsive Laboratory Tests Test 11/06/17 09:30 Vancomycin Level Trough 12.4 ug/mL (5.0-12.0) H Current Medications Medications (Trade) Dose Ordered Sig/Butch Route PRN Reason Start Time Stop Time Status Last Admin Dose Admin Acetaminophen (Tylenol) 650 mg Q4H PRN ORAL Mild Pain/Temp > 100.5 10/31/17 20:45 11/30/17 20:44 11/06/17 09:30 Al Hydroxide/Mg Hydroxide (Mylanta) 30 ml Q4HR PRN ORAL acid reduction 10/31/17 20:45 11/30/17 20:44 Amiodarone HCl (Cordarone) 200 mg EVERY 12 HOURS ORAL 11/02/17 21:00 12/02/17 20:59 11/06/17 09:21 Furosemide (Lasix) 40 mg DAILY IV 11/05/17 09:00 12/01/17 18:29 11/06/17 09:21 Metoprolol Tartrate (Lopressor) 100 mg Q12HR ORAL 11/04/17 21:00 12/04/17 20:59 11/06/17 09:20 Pantoprazole (Protonix) 40 mg DAILY ORAL 11/01/17 09:00 12/01/17 08:59 11/06/17 09:20 Potassium Chloride (K-Dur) 20 meq BID ORAL 11/02/17 18:30 12/01/17 18:29 11/06/17 09:20 Rivaroxaban (Xarelto) 15 mg QPM ORAL 11/01/17 16:30 12/01/17 16:29 11/05/17 15:58 Vancomycin HCl (Vanco rx to dose) 1 ea DAILY PRN MISC Per rx protocol 11/02/17 06:15 12/02/17 06:14 Vancomycin HCl 1 gm/Dextrose 275 ml @ 183.708 mls/hr Q12HR@1000,2200 IVPB 11/05/17 22:00 11/11/17 21:59 11/06/17 10:54 Zolpidem Tartrate (Ambien) 10 mg HSPRN PRN ORAL Insomnia 10/31/17 20:45 11/07/17 20:44 HAYDER SEALS Nov 06, 2017 11:54
[2017-11-06 12:00] VITALS: BP 107/61
--- NOTE | 2017-11-06 12:53 | Cardiac Electrophysiology PN ---
Assessment/Plan Assessment/Plan 1. Atrial fibrillation with rapid ventricular response. On amiodarone 200 mg b.i.d., metoprolol 100 mg b.i.d. and Xarelto. EF 60% to 65% 2. Hypertension. on metoprolol 100 mg b.i.d. and change Lasix to 40 po daily 3. Lower extremity edema and congestive heart failure due to diastolic dysfunction, under management of Dr. Watters. On Lasix 40 mg 4. Lower extremity cellulitis and Staph sepsis. On IV vancomycin per Dr. Almanza. DW RN Subjective Subjective Still in atrial fib with controlled rate. No chest pain or SOB. Objective Last 24 Hour Vital Signs Date Time Temp Pulse Resp B/P (MAP) Pulse Ox O2 Delivery O2 Flow Rate FiO2 11/06/17 12:00 98.4 85 18 107/61 97 Nasal Cannula 11/06/17 09:20 103 103/46 11/06/17 08:00 99 11/06/17 08:00 97.9 103 18 119/74 97 Nasal Cannula 11/06/17 04:27 97.8 75 19 119/69 97 Nasal Cannula 11/06/17 04:00 74 11/06/17 00:37 97.0 87 19 109/78 98 Nasal Cannula 11/06/17 00:00 87 11/05/17 22:00 119 122/71 11/05/17 20:38 97.9 103 19 118/83 97 Nasal Cannula 11/05/17 20:00 98 11/05/17 16:00 0 11/05/17 15:44 98.2 20 114/68 92 Intake and Output 11/05/17 11/06/17 19:00 07:00 Intake Total 840 ml 275.000 ml Output Total 600 ml Balance 840 ml -325.000 ml Intake Oral 840 ml IV Total 275.000 ml Output Urine Total 600 ml # Voids 3 Laboratory Tests Test 11/06/17 09:30 Vancomycin Level Trough 12.4 ug/mL (5.0-12.0) H Objective HEAD AND NECK: No JVD or carotid bruit. LUNGS: Clear. CARDIOVASCULAR: Irregular S1 and S2 with no gallop or murmur. ABDOMEN: Soft and nontender. EXTREMITIES: 2+ pitting edema. DEVON BEJARANO Nov 06, 2017 12:53
[2017-11-06 16:00] VITALS: BP 131/78
[2017-11-06] MEDS: Xarelto 15mg tab ORAL SCH (16:36)
[2017-11-06 20:00] VITALS: BP 115/69
[2017-11-06] MEDS ORDERED: Vancomycin 1250mg/D5W 250ml 250 ML IVPB SCH (21:00)
[2017-11-07] VITALS: BP 113/78
[2017-11-07 04:00] VITALS: BP 121/79
[2017-11-07 08:00] VITALS: BP 130/91
--- NOTE | 2017-11-07 08:15 | Progress Note ---
DATE: 11/06/2017 CARDIOLOGY PROGRESS NOTE SUBJECTIVE: The patient is remaining in atrial fibrillation. She was seen by EP residential property consultant Dr. Morton. Her heart rate control is somewhat improved overall, ranging today from 74 to 119 according to available records. The patient has less shortness of breath. Chest x-ray reviewed. Edema has decreased. OBJECTIVE: VITAL SIGNS: Blood pressure 103/46, pulse 103, and respiratory rate 18. LUNGS: Bilateral breath sounds. Few rales. CARDIAC: Irregularly irregular rhythm. Normal S1 and S2. ABDOMEN: Soft. EXTREMITIES: A 1+ dependent edema. IMPRESSION: 1. Pneumonia. 2. Paroxysmal atrial fibrillation. 3. Acute on chronic diastolic congestive heart failure. 4. Chronic venous insufficiency. PLAN OF CARE: Continue amiodarone, beta-alan, full anticoagulation. Consideration for DC cardioversion. We will discuss with EP attending. Antimicrobials. Respiratory hygiene. Nilay Watters M.D. DR: EDWIN/MICHALE JOB#: [id number] CC:
--- NOTE | 2017-11-07 08:17 | Pulmonology Progress Note ---
Assessment/Plan Assessment/Plan IMPRESSION CHF possible Pneumonia PAF respiratory insufficiency atrial fibrillation, with RVR pulmonary hypertension staph bacteremia hypercapnia PLAN diurese as able will need outpatient sleep study and PFT to assess for underlying etiology consider right heart cath with pulmonary hypertension antibiotics and ID clearance pending oxygen as needed on xarelto rate control stable home meds await clearance from all hope to dc soon ?consider iv vanco at home impression, plan, and exam edited and reviewed in detail care discussed with RN Subjective Allergies: Coded Allergies: No Known Allergies (Unverified , 10/31/17) Subjective care noted oxygen needs noted ID noted afib controlled respiratory acidosis noted Objective Last 24 Hour Vital Signs Date Time Temp Pulse Resp B/P (MAP) Pulse Ox O2 Delivery O2 Flow Rate FiO2 11/07/17 04:00 97.7 91 18 121/79 98 Nasal Cannula 11/07/17 03:34 81 11/07/17 00:00 98.0 77 20 113/78 98 Nasal Cannula 11/07/17 00:00 78 11/06/17 20:25 99 115/69 11/06/17 20:00 99.3 91 18 115/69 98 Nasal Cannula 11/06/17 19:31 88 11/06/17 16:00 78 11/06/17 16:00 97.0 85 19 131/78 97 Nasal Cannula 11/06/17 12:00 79 11/06/17 12:00 98.4 85 18 107/61 97 Nasal Cannula 11/06/17 09:20 103 103/46 Intake and Output 11/06/17 11/07/17 19:00 07:00 Intake Total 472 ml 631.000 ml Balance 472 ml 631.000 ml Intake Oral 472 ml 356 ml IV Total 275.000 ml # Voids 2 3 Objective WDWN NAD reduced breath sounds bilaterally but without rhonchi or wheeze S1S2 iRR rate controlled without MRG NABS nontender no HSM no CC noted edema nonfocal alert and oriented Laboratory Tests 11/06/17 09:30: Vancomycin Level Trough 12.4H Current Medications Medications (Trade) Dose Ordered Sig/Butch Route PRN Reason Start Time Stop Time Status Last Admin Dose Admin Acetaminophen (Tylenol) 650 mg Q4H PRN ORAL Mild Pain/Temp > 100.5 10/31/17 20:45 11/30/17 20:44 11/06/17 09:30 Al Hydroxide/Mg Hydroxide (Mylanta) 30 ml Q4HR PRN ORAL acid reduction 10/31/17 20:45 11/30/17 20:44 Amiodarone HCl (Cordarone) 200 mg EVERY 12 HOURS ORAL 11/02/17 21:00 12/02/17 20:59 11/06/17 20:25 Furosemide (Lasix) 40 mg DAILY ORAL 11/07/17 09:00 12/07/17 08:59 Metoprolol Tartrate (Lopressor) 100 mg Q12HR ORAL 11/04/17 21:00 12/04/17 20:59 11/06/17 20:25 Pantoprazole (Protonix) 40 mg DAILY ORAL 11/01/17 09:00 12/01/17 08:59 11/06/17 09:20 Potassium Chloride (K-Dur) 20 meq BID ORAL 11/02/17 18:30 12/01/17 18:29 11/06/17 17:14 Rivaroxaban (Xarelto) 15 mg QPM ORAL 11/01/17 16:30 12/01/17 16:29 11/06/17 16:36 Vancomycin HCl (Vanco rx to dose) 1 ea DAILY PRN MISC Per rx protocol 11/02/17 06:15 12/02/17 06:14 Vancomycin HCl 1 gm/Dextrose 275 ml @ 183.708 mls/hr Q12HR@1000,2200 IVPB 11/05/17 22:00 11/11/17 21:59 11/06/17 21:26 Zolpidem Tartrate (Ambien) 10 mg HSPRN PRN ORAL Insomnia 10/31/17 20:45 11/07/17 20:44 GLEN DELGADO Nov 07, 2017 08:17
[2017-11-07] MEDS: Amiodarone 200mg tab ORAL SCH ×2 (08:42→21:15)
[2017-11-07] MEDS: Furosemide 40mg tab ORAL SCH (08:43)
[2017-11-07] MEDS: Vancomycin 1gm/D5W 275ml IVPB SCH ×4 (10:07→22:37)
[2017-11-07 12:00] VITALS: BP 137/79
--- NOTE | 2017-11-07 13:20 | Cardiac Electrophysiology PN ---
Assessment/Plan Assessment/Plan 1. Atrial fibrillation with rapid ventricular response. On amiodarone 200 mg b.i.d., metoprolol 100 mg b.i.d. and Xarelto. EF 60% to 65% May benefit from DONNIE and Cardioversion as in patient or out patient. 2. Hypertension. on metoprolol 100 mg b.i.d. and Lasix [address] Watters 3. Lower extremity edema and congestive heart failure due to diastolic dysfunction, under management of Dr. Watters. On Lasix 40 mg po daily 4. Lower extremity cellulitis and Staph sepsis. On IV vancomycin per Dr. Almanza. DW RN Subjective Subjective In atrial fib with controlled rate. No chest pain or SOB.No events. Objective Last 24 Hour Vital Signs Date Time Temp Pulse Resp B/P (MAP) Pulse Ox O2 Delivery O2 Flow Rate FiO2 11/07/17 08:43 83 130/91 11/07/17 08:00 97.8 83 18 130/91 96 Nasal Cannula 2.0 11/07/17 04:00 97.7 91 18 121/79 98 Nasal Cannula 11/07/17 03:34 81 11/07/17 00:00 98.0 77 20 113/78 98 Nasal Cannula 11/07/17 00:00 78 11/06/17 20:25 99 115/69 11/06/17 20:00 99.3 91 18 115/69 98 Nasal Cannula 11/06/17 19:31 88 11/06/17 16:00 78 11/06/17 16:00 97.0 85 19 131/78 97 Nasal Cannula Intake and Output 11/06/17 11/07/17 19:00 07:00 Intake Total 472 ml 631.000 ml Balance 472 ml 631.000 ml Intake Oral 472 ml 356 ml IV Total 275.000 ml # Voids 2 3 Objective HEAD AND NECK: No JVD or carotid bruit. LUNGS: Clear. CARDIOVASCULAR: Irregular S1 and S2 with no gallop or murmur. ABDOMEN: Soft and nontender. EXTREMITIES: 2+ pitting edema. DEVON BEJARANO Nov 07, 2017 13:20
[2017-11-07] MEDS: Xarelto 15mg tab ORAL SCH (15:48)
[2017-11-07 16:00] VITALS: BP 135/80
--- NOTE | 2017-11-07 17:46 | General Progress Note ---
Assessment/Plan Problem List: (1) PNA (pneumonia) ICD Codes: J18.9 - Pneumonia, unspecified organism SNOMED: 106513480 (2) Atrial fibrillation with RVR ICD Codes: I48.91 - Unspecified atrial fibrillation SNOMED: 075287290171283 (3) Acute exacerbation of CHF (congestive heart failure) ICD Codes: I50.9 - Heart failure, unspecified SNOMED: 68296749 Qualifiers: Qualified Codes: I50.9 - Heart failure, unspecified Status: stable, progressing Assessment/Plan resp care o2 cardiac rx/diuresis monitor lytes abx rate control per cards. dc planning when cleared by id Subjective ROS Limited/Unobtainable: No Constitutional: Reports: malaise, weakness HEENT: Reports: no symptoms Cardiovascular: Reports: no symptoms Respiratory: Reports: cough, shortness of breath Gastrointestinal/Abdominal: Reports: no symptoms Genitourinary: Reports: no symptoms Neurologic/Psychiatric: Reports: no symptoms Endocrine: Reports: no symptoms Hematologic/Lymphatic: Reports: no symptoms Allergies: Coded Allergies: No Known Allergies (Unverified , 10/31/17) All Systems: reviewed and negative except above Subjective no events. feels well. cxr noted- improved. HR better controlled. still with some cough. remains on iv abx for positive blood cultures Objective Last 24 Hour Vital Signs Date Time Temp Pulse Resp B/P (MAP) Pulse Ox O2 Delivery O2 Flow Rate FiO2 11/07/17 12:00 98.1 77 19 137/79 99 Nasal Cannula 2.0 11/07/17 12:00 80 11/07/17 08:43 83 130/91 11/07/17 08:00 97.8 83 18 130/91 96 Nasal Cannula 2.0 11/07/17 08:00 94 11/07/17 04:00 97.7 91 18 121/79 98 Nasal Cannula 11/07/17 03:34 81 11/07/17 00:00 98.0 77 20 113/78 98 Nasal Cannula 11/07/17 00:00 78 11/06/17 20:25 99 115/69 11/06/17 20:00 99.3 91 18 115/69 98 Nasal Cannula 11/06/17 19:31 88 Intake and Output 11/06/17 11/07/17 19:00 07:00 Intake Total 472 ml 631.000 ml Balance 472 ml 631.000 ml Intake Oral 472 ml 356 ml IV Total 275.000 ml # Voids 2 3 Height (Feet): 5 Height (Inches): 3.00 Weight (Pounds): 220 Objective General Appearance: WD/WN, alert EENT: PERRL/EOMI Neck: supple Cardiovascular: irregularly irregular Respiratory/Chest: chest wall non-tender, rhonchi - bilaterally Abdomen: normal bowel sounds, non tender, soft, no organomegaly Extremities: normal range of motion Edema: mild edema 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
[2017-11-07 20:00] VITALS: BP 117/85
[2017-11-08] VITALS: BP 122/73
[2017-11-08 00:30] LABS: BILIRUBIN, URINE NEGATIVE (NEGATIVE); GLUCOSE, URINE (UA) NEGATIVE (NEGATIVE); KETONES,URINE NEGATIVE (NEGATIVE); NITRITE,URINE NEGATIVE (NEGATIVE); PH,URINE 6.5 (4.5-8.0); PROTEIN,URINE 2+ (NEGATIVE); UROBILINOGEN,URINE 4 MG/DL (0.0-1.0)
[2017-11-08 00:52] LABS: APPEARANCE,URINE CLOUDY; COLOR,URINE RED; LEUKOCYTE ESTERASE ,URINE 1+ (NEGATIVE)
[2017-11-08 04:00] VITALS: BP 136/96
--- NOTE | 2017-11-08 04:00 | Progress Note ---
DATE: 11/07/2017 CARDIOLOGY PROGRESS NOTE SUBJECTIVE: The patient has less cough, congestion, and shortness of breath. Monitored rhythm, atrial fibrillation. Rate control has improved. OBJECTIVE: VITAL SIGNS: Blood pressure 130/91, pulse 83, respirations 18, and afebrile. LUNGS: Coarse breath sounds. Scattered rhonchi. HEART: Irregularly irregular rhythm. Normal S1 and S2. ABDOMEN: Soft. No edema. IMPRESSION: 1. Pneumonia. 2. Paroxysmal atrial fibrillation. 3. Diastolic congestive heart failure acute on chronic. 4. Chronic venous insufficiency with lower extremity edema. 5. Metabolic alkalosis. PLAN: 1. Recheck laboratory studies. 2. Continue antiarrhythmic regimen. 3. DC cardioversion once respiratory parameters stabilized if no spontaneous conversion to sinus rhythm on amiodarone alone. Nilay Watters M.D. DR: ANTON JOB#: [id number] CC:
[2017-11-08 08:00] VITALS: BP 116/89
[2017-11-08] MEDS: Furosemide 40mg tab ORAL SCH (09:18)
[2017-11-08] MEDS: Amiodarone 200mg tab ORAL SCH (09:18)
[2017-11-08 09:52] LABS: BASOPHILS % (AUTO) 0.7 % (0.0-2.0); EOSINOPHILS % (AUTO) 1.2 % (0.0-3.0); HEMATOCRIT 43.5 % (37.0-47.0); HEMOGLOBIN 13.4 G/DL (12.0-16.0); LYMPHOCYTES % (AUTO) 21.7 % (20.0-45.0); MEAN CORPUSCULAR VOLUME 93 FL (80-99); MONOCYTES % (AUTO) 6.7 % (1.0-10.0); NEUTROPHILS % (AUTO) 69.8 % (45.0-75.0); PLATELET COUNT 159 K/UL (150-450); RED BLOOD COUNT 4.66 M/UL (4.20-5.40); RED CELL DISTRIBUTION WIDTH 12.3 % (11.6-14.8); WHITE BLOOD COUNT 8.5 K/UL (4.8-10.8)
--- NOTE | 2017-11-08 10:03 | General Progress Note ---
Assessment/Plan Problem List: (1) PNA (pneumonia) ICD Codes: J18.9 - Pneumonia, unspecified organism SNOMED: 541742554 (2) Atrial fibrillation with RVR ICD Codes: I48.91 - Unspecified atrial fibrillation SNOMED: 288693739616526 (3) Acute exacerbation of CHF (congestive heart failure) ICD Codes: I50.9 - Heart failure, unspecified SNOMED: 64180575 Qualifiers: Qualified Codes: I50.9 - Heart failure, unspecified Status: stable, progressing Assessment/Plan resp care o2 cardiac rx/diuresis monitor lytes abx per ID rate control per cards. dc planning when cleared by id Subjective ROS Limited/Unobtainable: No Constitutional: Reports: malaise, weakness HEENT: Reports: no symptoms Cardiovascular: Reports: no symptoms Respiratory: Reports: no symptoms Gastrointestinal/Abdominal: Reports: no symptoms Genitourinary: Reports: no symptoms Neurologic/Psychiatric: Reports: no symptoms Endocrine: Reports: no symptoms Hematologic/Lymphatic: Reports: no symptoms Allergies: Coded Allergies: No Known Allergies (Unverified , 10/31/17) All Systems: reviewed and negative except above Subjective no events. no cp/sob/palps. on iv abx for pos blood cultures. Objective Last 24 Hour Vital Signs Date Time Temp Pulse Resp B/P (MAP) Pulse Ox O2 Delivery O2 Flow Rate FiO2 11/08/17 09:17 89 116/89 11/08/17 08:00 97.6 89 19 116/89 98 11/08/17 04:00 Nasal Cannula 2.0 11/08/17 04:00 97.5 91 19 136/96 99 11/08/17 04:00 70 11/08/17 00:00 65 11/08/17 00:00 98.1 82 19 122/73 99 11/08/17 00:00 Nasal Cannula 2.0 11/07/17 21:18 95 117/85 11/07/17 20:00 91 11/07/17 20:00 98.1 94 20 117/85 93 Room Air 11/07/17 16:00 75 11/07/17 16:00 97.4 81 19 135/80 98 Nasal Cannula 2.0 11/07/17 12:00 98.1 77 19 137/79 99 Nasal Cannula 2.0 11/07/17 12:00 80 Intake and Output 11/07/17 11/08/17 19:00 07:00 Intake Total 747.000 ml 751.000 ml Balance 747.000 ml 751.000 ml Intake Oral 472 ml 476 ml IV Total 275.000 ml 275.000 ml # Voids 2 4 Laboratory Tests 11/07/17 19:45: Urine Color Red, Urine Appearance Cloudy, Urine pH 6.5, Urine Specific [place] 1.010, Urine Protein 2+H, Urine Glucose (UA) Negative, Urine Ketones Negative, Urine Occult Blood 5+H, Urine Nitrite Negative, Urine Bilirubin Negative, Urine Urobilinogen 4H, Urine Leukocyte Esterase 1+H, Urine RBC TntcH, Urine WBC 2-4, Urine Squamous Epithelial Cells ModerateH, Urine Bacteria Few 11/08/17 09:15: White Blood Count 8.5, Red Blood Count 4.66, Hemoglobin 13.4, Hematocrit 43.5, Mean Corpuscular Volume 93, Mean Corpuscular Hemoglobin 28.8, Mean Corpuscular Hemoglobin Concent 30.9L, Red Cell Distribution Width 12.3, Platelet Count 159, Mean Platelet Volume 12.4H, Neutrophils (%) (Auto) 69.8, Lymphocytes (%) (Auto) 21.7, Monocytes (%) (Auto) 6.7, Eosinophils (%) (Auto) 1.2, Basophils (%) (Auto ) 0.7, Sodium Level [Pending], Potassium Level [Pending], Chloride Level [ Pending], Carbon Dioxide Level [Pending], Blood Urea Nitrogen [Pending], Creatinine [Pending], Estimat Glomerular Filtration Rate [Pending], Glucose Level [Pending], Calcium Level [Pending], Magnesium Level [Pending], Total Bilirubin [Pending], Aspartate Amino Transf (AST/SGOT) [Pending], Alanine Aminotransferase (ALT/SGPT) [Pending], Alkaline Phosphatase [Pending], Pro-B- Type Natriuretic Peptide [Pending], Total Protein [Pending], Albumin [Pending], Globulin [Pending], Vancomycin Level Trough [Pending] Height (Feet): 5 Height (Inches): 3.00 Weight (Pounds): 220 Objective General Appearance: WD/WN, alert EENT: PERRL/EOMI Neck: supple Cardiovascular: irregularly irregular Respiratory/Chest: chest wall non-tender, rhonchi - bilaterally Abdomen: normal bowel sounds, non tender, soft, no organomegaly Extremities: normal range of motion Edema: mild edema Neurologic: it technical specialist II-XII grossly normal, no motor/sensory deficits AYAD BAUTISTA Nov 08, 2017 10:03
--- NOTE | 2017-11-08 10:35 | Infectious Diseases Prog Note ---
"Assessment/Plan Assessment/Plan antibiotics : vancomycin iv A 1. leg cellulitis improving bilaterally 2. + blood cultures with staph epidermidis | staph lugdunensis 3. HTN 4. CHF P 1. d/c iv vancomycin 2. start and continue po doxycycline 7 more days 3. will follow up cultures Subjective Constitutional: Denies: fever, chills Respiratory: Denies: shortness of breath, dry cough Gastrointestinal/Abdominal: Denies: nausea, vomiting, diarrhea Musculoskeletal: Denies: pain Allergies: Coded Allergies: No Known Allergies (Unverified , 10/31/17) Objective Vital Signs Last 24 Hour Vital Signs Date Time Temp Pulse Resp B/P (MAP) Pulse Ox O2 Delivery O2 Flow Rate FiO2 11/08/17 09:17 89 116/89 11/08/17 08:00 97.6 89 19 116/89 98 11/08/17 04:00 Nasal Cannula 2.0 11/08/17 04:00 97.5 91 19 136/96 99 11/08/17 04:00 70 11/08/17 00:00 65 11/08/17 00:00 98.1 82 19 122/73 99 11/08/17 00:00 Nasal Cannula 2.0 11/07/17 21:18 95 117/85 11/07/17 20:00 91 11/07/17 20:00 98.1 94 20 117/85 93 Room Air 11/07/17 16:00 75 11/07/17 16:00 97.4 81 19 135/80 98 Nasal Cannula 2.0 11/07/17 12:00 98.1 77 19 137/79 99 Nasal Cannula 2.0 11/07/17 12:00 80 Height (Feet): 5 Height (Inches): 3.00 Weight (Pounds): 220 Respiratory/Chest: lungs clear Cardiovascular: normal rate, regular rhythm, no gallop/murmur Abdomen: soft, non tender Extremities: no edema, other - decreased erythema Laboratory Tests Test 11/07/17 19:45 11/08/17 09:15 Urine Color Red Urine Appearance Cloudy Urine pH 6.5 (4.5-8.0) Urine Specific [place] 1.010 (1.005-1.035) Urine Protein 2+ (NEGATIVE) H Urine Glucose (UA) Negative (NEGATIVE) Urine Ketones Negative (NEGATIVE) Urine Occult Blood 5+ (NEGATIVE) H Urine Nitrite Negative (NEGATIVE) Urine Bilirubin Negative (NEGATIVE) Urine Urobilinogen 4 MG/DL (0.0-1.0) H Urine Leukocyte Esterase 1+ (NEGATIVE) H Urine RBC Tntc /HPF (0 - 2) H Urine WBC 2-4 /HPF (0 - 2) Urine Squamous Epithelial Cells Moderate /LPF (NONE/OCC) H Urine Bacteria Few /HPF (NONE) White Blood Count 8.5 K/UL (4.8-10.8) Red Blood Count 4.66 M/UL (4.20-5.40) Hemoglobin 13.4 G/DL (12.0-16.0) Hematocrit 43.5 % (37.0-47.0) Mean Corpuscular Volume 93 FL (80-99) Mean Corpuscular Hemoglobin 28.8 PG (27.0-31.0) Mean Corpuscular Hemoglobin Concent 30.9 G/DL (32.0-36.0) L Red Cell Distribution Width 12.3 % (11.6-14.8) Platelet Count 159 K/UL (150-450) Mean Platelet Volume 12.4 FL (6.5-10.1) H Neutrophils (%) (Auto) 69.8 % (45.0-75.0) Lymphocytes (%) (Auto) 21.7 % (20.0-45.0) Monocytes (%) (Auto) 6.7 % (1.0-10.0) Eosinophils (%) (Auto) 1.2 % (0.0-3.0) Basophils (%) (Auto) 0.7 % (0.0-2.0) Sodium Level Pending Potassium Level Pending Chloride Level Pending Carbon Dioxide Level Pending Blood Urea Nitrogen Pending Creatinine Pending Estimat Glomerular Filtration Rate Pending Glucose Level Pending Calcium Level Pending Magnesium Level Pending Total Bilirubin Pending Aspartate Amino Transf (AST/SGOT) Pending Alanine Aminotransferase (ALT/SGPT) Pending Alkaline Phosphatase Pending Pro-B-Type Natriuretic Peptide Pending Total Protein Pending Albumin Pending Globulin Pending Vancomycin Level Trough Pending JG SINHA Nov 08, 2017 10:35"
[2017-11-08 10:51] LABS: ALANINE AMINOTRANSFERASE 24 U/L (12-78); ALBUMIN 3.2 G/DL (3.4-5.0); ALBUMIN/GLOBULIN RATIO 0.7 (1.0-2.7); ALKALINE PHOSPHATASE 73 U/L (46-116); ANION GAP 5 mmol/L (5-15); ASPARTATE AMINO TRANSFERASE 21 U/L (15-37); BILIRUBIN,TOTAL 0.6 MG/DL (0.2-1.0); BLOOD UREA NITROGEN 19 mg/dL (7-18); CALCIUM 9.3 MG/DL (8.5-10.1); CARBON DIOXIDE 35 MMOL/L (21-32); CHLORIDE 99 MMOL/L (98-107); POTASSIUM 4.2 MMOL/L (3.5-5.1); SODIUM 139 MMOL/L (136-145)
[2017-11-08 12:00] VITALS: BP 125/72
--- NOTE | 2017-11-08 16:03 | Pulmonology Progress Note ---
Assessment/Plan Assessment/Plan IMPRESSION CHF possible Pneumonia PAF respiratory insufficiency atrial fibrillation, with RVR pulmonary hypertension staph bacteremia hypercapnia PLAN ok to dc per ID doxycyline given will need outpatient sleep study and PFT to assess for underlying etiology consider right heart cath with pulmonary hypertension on xarelto with caution rate control stable home meds asked to follow up after discharge impression, plan, and exam edited and reviewed in detail care discussed with RN Subjective Allergies: Coded Allergies: No Known Allergies (Unverified , 10/31/17) Subjective care noted oxygen needs noted ID noted afib controlled respiratory acidosis noted cleared by ID Objective Last 24 Hour Vital Signs Date Time Temp Pulse Resp B/P (MAP) Pulse Ox O2 Delivery O2 Flow Rate FiO2 11/08/17 12:00 70 11/08/17 12:00 98.1 73 20 125/72 96 11/08/17 09:17 89 116/89 11/08/17 08:00 76 11/08/17 08:00 97.6 89 19 116/89 98 11/08/17 04:00 Nasal Cannula 2.0 11/08/17 04:00 97.5 91 19 136/96 99 11/08/17 04:00 70 11/08/17 00:00 65 11/08/17 00:00 98.1 82 19 122/73 99 11/08/17 00:00 Nasal Cannula 2.0 11/07/17 21:18 95 117/85 11/07/17 20:00 91 11/07/17 20:00 98.1 94 20 117/85 93 Room Air Intake and Output 11/07/17 11/08/17 19:00 07:00 Intake Total 747.000 ml 751.000 ml Balance 747.000 ml 751.000 ml Intake Oral 472 ml 476 ml IV Total 275.000 ml 275.000 ml # Voids 2 4 Objective WDWN NAD reduced breath sounds bilaterally but without rhonchi or wheeze S1S2 iRR rate controlled without MRG NABS nontender no HSM no CC noted edema nonfocal alert and oriented Laboratory Tests 11/07/17 19:45: Urine Color Red, Urine Appearance Cloudy, Urine pH 6.5, Urine Specific [place] 1.010, Urine Protein 2+H, Urine Glucose (UA) Negative, Urine Ketones Negative, Urine Occult Blood 5+H, Urine Nitrite Negative, Urine Bilirubin Negative, Urine Urobilinogen 4H, Urine Leukocyte Esterase 1+H, Urine RBC TntcH, Urine WBC 2-4, Urine Squamous Epithelial Cells ModerateH, Urine Bacteria Few 11/08/17 09:15: White Blood Count 8.5, Red Blood Count 4.66, Hemoglobin 13.4, Hematocrit 43.5, Mean Corpuscular Volume 93, Mean Corpuscular Hemoglobin 28.8, Mean Corpuscular Hemoglobin Concent 30.9L, Red Cell Distribution Width 12.3, Platelet Count 159, Mean Platelet Volume 12.4H, Neutrophils (%) (Auto) 69.8, Lymphocytes (%) (Auto) 21.7, Monocytes (%) (Auto) 6.7, Eosinophils (%) (Auto) 1.2, Basophils (%) (Auto ) 0.7, Sodium Level 139, Potassium Level 4.2, Chloride Level 99, Carbon Dioxide Level 35H, Anion Gap 5, Blood Urea Nitrogen 19H, Creatinine 1.0, Estimat Glomerular Filtration Rate , Glucose Level 212H, Calcium Level 9.3, Magnesium Level 1.8, Total Bilirubin 0.6, Aspartate Amino Transf (AST/SGOT) 21, Alanine Aminotransferase (ALT/SGPT) 24, Alkaline Phosphatase 73, Pro-B-Type Natriuretic Peptide 524H, Total Protein 7.5, Albumin 3.2L, Globulin 4.3, Albumin/Globulin Ratio 0.7L, Vancomycin Level Trough 15.4H GLEN DELGADO Nov 08, 2017 16:03
--- NOTE | 2017-11-08 22:30 | Progress Note ---
DATE: 11/08/2017 CARDIOLOGY PROGRESS NOTE SUBJECTIVE: The patient is on oral antibiotics at this time. OBJECTIVE: VITAL SIGNS: Blood pressure 125/72, heart rate 72, and respiratory rate 20. She is afebrile. Monitored rhythm, atrial fibrillation. LUNGS: Bilateral breath sounds. HEART: Irregularly irregular rhythm. Normal S1, S2. ABDOMEN: Soft. EXTREMITIES: No edema. LABORATORY DATA: White count 8.5 and hemoglobin 13.4. Potassium 4.2, BUN 19, and creatinine 1. Albumin 3.2. Pro-natriuretic peptide 500. IMPRESSION: 1. Bacteremia. 2. Pneumonia. 3. Paroxysmal atrial fibrillation. 4. Acute on chronic diastolic congestive heart failure, now compensated. 5. Mild protein-calorie malnutrition, improving. 6. Resolved metabolic alkalosis. 7. Chronic respiratory acidosis. PLAN: 1. Outpatient followup. 2. Continue anticoagulation with Eliquis or rivaroxaban. 3. Maintain amiodarone loading dose 200 mg b.i.d. 4. Titrate beta alan. 5. No conversion with amiodarone over the next 4 to 6 weeks. 6. Medication titration will follow based on clinical parameters. 7. Outpatient cardiovascular followup offered. Nilay Watters M.D. DR: VINOD JOB#: [id number] CC:
--- NOTE | 2017-11-10 14:14 | Discharge Summary ---
Discharge Summary Hospital Course Date of Admission Oct 31, 2017 at 16:06 Date of Discharge Nov 08, 2017 at 12:45 Admitting Diagnosis sob/ chf HPI Suzette Ching is a 77 year old female who was admitted on Oct 31, 2017 at 16: 06 for Shortness Of Breath,Congestive Heart Failure Hospital Course [id number] Discharge Discharge Disposition Patient was discharged to Home with Discharge Diagnoses: Winsome Rm NP Nov 10, 2017 14:14
--- NOTE | 2017-11-10 22:30 | Discharge Summary 2 SIG ---
DATE OF ADMISSION: 10/31/2017 DATE OF DISCHARGE: 11/08/2017 CONSULTANTS: 1. Sloan Hartmann M.D. 2. Nilay Watters M.D. 3. Chirag Almanza M.D. 4. Coleman Morton M.D. BRIEF HOSPITAL COURSE: The patient is a 77-year-old female with history of hypertension, atrial fibrillation, and congestive heart failure, presented with acute onset of shortness of breath. She denied cough, chills, or fever and denied any recent travel or sick contacts. On evaluation at ED, blood work showed no leukocytosis. Troponin was negative. BNP was 1889. EKG was in atrial fibrillation and chest x-ray showed small right pleural effusion with adjacent right basilar opacities concerning for pneumonia. She was admitted to telemetry and was given respiratory care and oxygenation. She was given IV diuresis and was started empirically on Rocephin. She underwent echocardiogram that showed left ventricular ejection fraction of 60% to 65% with mild tricuspid and mitral regurgitation and PASP of 53. She had episodes of atrial fibrillation with rapid ventricular response. She was continued on metoprolol 100 mg b.i.d. and amiodarone 200 mg b.i.d. She had lower extremity edema and was given IV vancomycin. Blood cultures showed growth of Staph epidermidis. Intravenous vancomycin was eventually transitioned to p.o. doxycycline. She was continued on Eliquis and was recommended would benefit from DONNIE and cardioversion as outpatient. She was eventually discharged home with home health. FINAL DIAGNOSES: 1. Pneumonia. 2. Bacteremia. 3. Paroxysmal atrial fibrillation with rapid ventricular response. 4. Acute on chronic diastolic congestive heart failure. 5. Mild protein-calorie malnutrition. 6. Resolved metabolic alkalosis. 7. Chronic respiratory acidosis. 8. Staphylococcus bacteremia. 9. Pulmonary hypertension. 10. Bilateral leg cellulitis. 11. Lower extremity edema. 12. Hypertension. DISPOSITION: The patient was discharged with home health. DISCHARGE MEDICATIONS: Refer to medication list. DISCHARGE INSTRUCTIONS: Follow up in a week as outpatient. Tim Amado M.D. I have been assigned to dictate discharge summary on this account and I was not involved in the patient's management. Winsome Rm N.P. DR: CORRINE JOB#: [id number] CC:
--- NOTE | 2017-11-13 20:21 | Diagnostic Imaging Report ---
APPROVED REPORT CPT Code: 26750 Present Symptoms Lower Extremity Pain: Comments: R/O DVT. Limited exam due to left leg pain. BILATERAL LOWER EXTREMITY VENOUS DUPLEX: Imaging reveals a patent deep venous system bilaterally. There is no evidence of thrombus within the femoral, popliteal or right tibial segments. The greater saphenous veins are also within normal limits. Doppler indicates normal spontaneous flow within these segments. The left tibial segments were not imaged due to pain.
== END 2017-11-08 12:45 | disposition home health service (06) | DRG 291 ==
LOC: EDBD 15:40 → EMR 15:58 → 2E 16:06 → EDBEDREQ 18:49
DX: I11.0 Hypertensive heart disease with heart failure (principal); J18.9 Pneumonia, unspecified organism; E87.3 Alkalosis; L03.115 Cellulitis of right lower limb; I27.20 Pulmonary hypertension, unspecified; R78.81 Bacteremia; I48.0 Paroxysmal atrial fibrillation; E44.1 Mild protein-calorie malnutrition; L03.116 Cellulitis of left lower limb; I50.33 Acute on chronic diastolic (congestive) heart failure; M19.90 Unspecified osteoarthritis, unspecified site; I87.2 Venous insufficiency (chronic) (peripheral); B95.7 Other staphylococcus as the cause of diseases classified elsewhere; Z68.39 Body mass index [BMI] 39.0-39.9, adult
CPT/HCPCS: 36415; 36600; 71045; 71046; 80048; 80053; 80202; 81003; 82550; 82553; 82803; 83605; 83735; 83880; 84443; 84484; 85025; 86710; 87040; 87181; 93005; 93306; 93970; 99285; J8499